=== PATIENT | female | born 1965 | race African-American/Black ===

== ENCOUNTER 2016-07-20 02:40 | Inpatient (IN) ==
[2016-07-20] MEDS ORDERED: DUONEB (A & A) INH ONE (03:10)
[2016-07-20] MEDS ORDERED: SOLU-MEDROL IV ONE (03:15)
[2016-07-20 03:42] LABS: MANUAL DIFF NEEDED? NO
[2016-07-20 03:45] LABS: BASO% 0.2 % (0.0-0.8); EOS# 1.52 X1000 (0.0-0.7); HEMATOCRIT 40.7 % (37.0-47.0); HEMOGLOBIN 13.7 g/dL (12.0-16.0); IMM GRAN# 0.03 X1000 (0.0-0.04); IMM GRAN% 0.3 % (0.0-0.5); LYMPH# 3.83 X1000 (1.2-3.4); LYMPH% 40.2 % (20.5-51.1); MCH 29.3 PG (27-31); MCHC 33.7 g/dL (33-37); MCV 87.2 FL (81-99); MONO% 7.4 % (1.7-9.3); MPV 12.5 FL (7.4-10.4); NEUT% 35.9 % (42.2-75.2); PLT 280 X1000 (130-400); RBC 4.67 XMIL (4.2-5.4)
[2016-07-20 04:35] LABS: AGAP 16; ALBUMIN 4.3 g/dL (3.5-5.0); ALKALINE PHOSPHATASE 88 U/L (32-104); BUN 10 mg/dL (8-22); CALCIUM 9.6 mg/dL (8.8-10.2); CHLORIDE 87 mmol/L (98-107); CK PROFILE 254 U/L (24-173); COSMO 286; GOT 24 U/L (10-30); GPT 38 U/L (10-36); MAGNESIUM 1.6 mg/dL (1.5-2.7); POTASSIUM 3.8 mmol/L (3.5-5.1); SODIUM 134 mmol/L (136-145); TCO2 31 mmol/L (25-35); TOTAL BILIRUBIN 0.26 mg/dL (0.20-1.00); TOTAL PROTEIN 8.2 g/dL (6.3-8.3)
[2016-07-20] MEDS ORDERED: HUMULIN R IV ONE (04:38)
[2016-07-20] MEDS ORDERED: ROBITUSSIN PO ONE (04:39)
[2016-07-20] MEDS ORDERED: NS 1,000 ML IV ONE (04:40)
[2016-07-20 04:56] LABS: CK INDEX 2.5 (0.0-2.5); CK-MB 6.23 ng/mL (0.0-5.0)
--- NOTE | 2016-07-20 05:25 | PROVIDER DOCUMENTATION ---
HPI-Respiratory General - General Chief Complaint: Shortness of Breath Stated Complaint: sob Time Seen by Provider: 07/20/16 03:14 Source: patient (Patient is a 50 year old morbidly obese black female with history of COPD requiring home oxygen and updrafts,ulcers, and diabetes who presents by EMS with worsening shortness of breath and glucose over 400 for past week. Followed by Dr. Jimenez. patient also complains of vomiting blood and nausea.) Allergies/Adverse Reactions: Patient Allergies Allergy/AdvReac Type Severity Reaction Status Date / Time lisinopril Allergy Severe SWELLING Verified 06/15/16 18:11 procaine HCl * Allergy Severe ANAPHYLAXIS Verified 06/15/16 18:11 [From Novocain] Penicillins Allergy Intermediate HIVES Verified 06/15/16 18:11 bupivacaine HCl * Allergy SWELLING Verified 06/15/16 18:11 [From Sensorcaine] latex AdvReac RASH Verified 06/15/16 18:11 Home Medications: Home Medication List Medication Instructions Recorded Confirmed Last Taken Type Potassium Chloride [Klor-Con M20] 20 meq PO DAILY #30 tab.er.prt 11/24/1406/15/16 11:00 Rx Amlodipine [Norvasc] 10 mg PO DAILY #30 tablet 05/23/15 07/20/16 06/15/16 11:00 Rx Albuterol 2.5MG/Ipratrop 0.5MG 3 ml INH [id number] #30 neb 06/17/15 07/20/16 11:00 Rx [Duoneb (A & A)] Furosemide [Lasix] 40 mg PO DAILY #30 tablet 06/17/15 07/20/16 06/15/16 11:00 Rx Metformin [Glucophage] 500 mg PO BID #60 09/01/15 07/20/16 06/15/16 11:00 Rx Albuterol Sulfate Inhaler 2 puff IH Q4H PRN #1 inhaler 06/22/16 07/20/16 Unknown Rx [Ventolin Hfa] Alprazolam [Alprazolam] 1 tab PO PRN PRN 07/20/16 07/20/16 Unknown History Hydrocodone/Acetaminophen 1 tab PO Q6HR PRN 07/20/16 07/20/16 Unknown History [Hydrocodon-Acetaminophn 10-325] Review of Systems - Adult - REVIEW OF SYSTEMS - ADULT Constitutional: denies: chills, fever Eyes: reports: no symptoms reported Ears, Nose, Mouth & Throat: reports: no symptoms reported Cardiovascular: reports: see HPI, edema. denies: chest pain Respiratory: reports: cough (dry), shortness of breath, wheezing Gastrointestinal: reports: nausea. denies: abdominal pain, diarrhea, vomiting Genitourinary: reports: no symptoms reported Musculoskeletal: reports: no symptoms reported Integumentary: denies: rash Neurological: reports: no symptoms reported Psychiatric: reports: anxiety Endocrine: reports: polyuria Hematologic/Lymphatic: reports: no symptoms reported Allergic/Immunologic: reports: no symptoms reported All Other Systems: Reviewed and Negative Past History - Adult - PAST MEDICAL HISTORY-ADULT Review of Records: reports: Old Records Reviewed, Nursing Assessment Review, Medications Reviewed, Social history reviewed & non-contributory. Major Childhood Illnesses: reports: denies history Cardiovascular: reports: cardiac disease (CMG), CHF, HTN, hyperlipidemia Respiratory: reports: asthma, COPD (home o2) Gastrointestinal: reports: GERD Obstetrical/Gynecological: reports: denies history Genitourinary: reports: denies history Musculoskeletal: reports: chronic pain (hip, foot pain), other (peripheral edema ) Neurological: reports: CVA, TIA Endocrine/Immune: reports: anemia, Diabetes Other Conditions: reports: denies history Additional History: Freq ER visits - PRIOR SURGERIES/PROCEDURES Surgical/Procedure History: reports: cholecystectomy, BTL, , breast - PRIOR HOSPITALIZATIONS Prior Hospitalizations: - IMMUNIZATION STATUS Childhood Immunizations: See Nurse Assessment Flu Vaccine: See Nurse Assessment - FAMILY HISTORY Family History: reviewed, not pertinent Physical Exam-General - CONSTITUTIONAL General Appearance: alert, obese - EYES Eyes: other (clear) - HEAD, EARS, NOSE, MOUTH & THROAT HENMT: moist mucous membranes - NECK Neck: supple - RESPIRATORY Respiratory: no respiratory distress, no accessory muscle use, decreased breath sounds, wheezing - CARDIOVASCULAR Cardiovascular: tachycardia - GASTROINTESTINAL (ABDOMEN) Abdominal Exam: non tender, soft, no organomegaly - MUSCULOSKELETAL Back Exam: normal inspection, no CVA tenderness Extremity: non-tender, other (no homans or cords) Peripheral Pulses: radial (R): 2+, radial (L): 2+, dorsalis-pedis (R): 2+, dorsalis-pedis (L): 2+ - SKIN Integumentary: normal color, normal turgor - NEUROLOGIC Neurologic: grossly normal - PSYCHIATRIC Psych/Mental Status: anxious Progress - PLAN OF CARE/RESULTS Progress/Plan/Lab Results: Vital Signs - 8 hr 07/20/16 02:59 07/20/16 03:46 Temperature 98.6 F Pulse Rate 103 H 88 Respiratory Rate 26 H 16 Blood Pressure 138/88 O2 Sat by Pulse Oximetry 95 Laboratory Results - last 24 hr 07/20/16 07/20/16 07/20/16 02:30 02:30 02:30 WBC 9.52 RBC 4.67 Hgb 13.7 Hct 40.7 MCV 87.2 MCH 29.3 MCHC 33.7 RDW Std Deviation 12.2 Plt Count 280 MPV 12.5 H Immature Gran % (Auto) 0.3 Neut % (Auto) 35.9 L Lymph % (Auto) 40.2 Sanders % (Auto) 7.4 Eos % (Auto) 16.0 H Baso % (Auto) 0.2 Immature Gran # (Auto) 0.03 Neut # (Auto) 3.42 Lymph # (Auto) 3.83 H Sanders # (Auto) 0.70 H Eos # (Auto) 1.52 H Baso # (Auto) 0.02 D-Dimer 0.43 Sodium 134 L Potassium 3.8 Chloride 87 L Carbon Dioxide 31 Anion Gap 16 BUN 10 Creatinine 0.7 Estimated GFR/1.73 m2 > 60 BUN/Creatinine Ratio 14 Glucose 427 H* POC Glucose Calculated Osmolality 286 Calcium 9.6 Magnesium 1.6 Total Bilirubin 0.26 AST 24 ALT 38 H Alkaline Phosphatase 88 Creatine Kinase 254 H Creatine Kinase Index 2.5 CK-MB (CK-2) 6.23 H Troponin T Wrn-T-Uzlszublxps Pept Total Protein 8.2 Albumin 4.3 Globulin 3.9 Albumin/Globulin Ratio 1.1 07/20/16 07/20/16 07/20/16 02:30 02:30 03:33 WBC RBC Hgb Hct MCV MCH MCHC RDW Std Deviation Plt Count MPV Immature Gran % (Auto) Neut % (Auto) Lymph % (Auto) Sanders % (Auto) Eos % (Auto) Baso % (Auto) Immature Gran # (Auto) Neut # (Auto) Lymph # (Auto) Sanders # (Auto) Eos # (Auto) Baso # (Auto) D-Dimer Sodium Potassium Chloride Carbon Dioxide Anion Gap BUN Creatinine Estimated GFR/1.73 m2 BUN/Creatinine Ratio Glucose POC Glucose 363 H Calculated Osmolality Calcium Magnesium Total Bilirubin AST ALT Alkaline Phosphatase Creatine Kinase Creatine Kinase Index CK-MB (CK-2) Troponin T < 0.010 Nxs-[id number]-[id number] Pept 32 Total Protein Albumin Globulin Albumin/Globulin Ratio Orders Category Date Time Status Cardiac Monitoring DIRECTED Care 07/20/16 03:16 Active FSBS/Accucheck Result RTQ1H Care 07/20/16 04:40 Active Oxygen Therapy- ED Nursing DIRECTED Care 07/20/16 03:10 Active Saline Loc DIRECTED Care 07/20/16 03:10 Active CHEST-1 VIEW [RAD] Stat Exams 07/20/16 03:15 Taken CBC WITH ELECTRONIC DIFF [HEME] Stat Lab 07/20/16 02:30 Completed CK PROFILE [SP CHEM] Stat Lab 07/20/16 02:30 Completed COMPREHENSIVE METABOLIC PANEL [CHEM] Stat Lab 07/20/16 02:30 Completed D-DIMER [CHEM] Stat Lab 07/20/16 02:30 Completed MAGNESIUM [CHEM] Stat Lab 07/20/16 02:30 Completed PRO B-NATRIURETIC PEPTIDE Stat Lab 07/20/16 02:30 Completed TROPONIN T Stat Lab 07/20/16 02:30 Completed 0.9% Sodium Chloride Inj [Ns] 1,000 ml Med 07/20/16 04:40 Active IV 999 mls/hr Albuterol 2.5MG/Ipratrop 0.5MG [Duoneb (A & A)] Med 07/20/16 03:10 Discontinued 3 ml INH NOW ONE Guaifenesin [Robitussin] Med 07/20/16 04:39 Discontinued 10 ml PO NOW ONE Insulin Human Regular [Humulin R] Med 07/20/16 04:38 Discontinued 8 unit IV NOW ONE Methylprednisolone Sod Succ [Solu-Medrol] Med 07/20/16 03:15 Discontinued 125 mg IV NOW ONE Aerosol Treatments Routine Oth 07/20/16 03:11 Completed Aerosol Treatments Stat Oth 07/20/16 03:10 Completed Aerosol Treatments Stat Oth 07/20/16 03:11 Completed Pulse Oximetry Stat Oth 07/20/16 03:10 Completed EKG [EKG] Stat Ther 07/20/16 03:16 Ordered Result Diagrams: 07/20/16 02:30 07/20/16 02:30 - REASSESSMENT Reassessment #1 Time Reassessed: 04:20 Status: unchanged Reassessment Comment: continues to wheeze with decreased excursion - XRAY 1 XRAY Study: Chest (nad) - CONSULTS/PCP/HOSPITALIST Notification #1 *Consult/PCP/Hospitalist*: Dr. Gregory, hospitalist Time Discussed: 05:25 Consult Disposition: Will see in ED, Admit Departure - Departure Time of Disposition Decision: 05:30 DIAGNOSIS: COPD exacerbation Uncontrolled diabetes mellitus Qualifiers: Diabetes mellitus type: type 2 Diabetes mellitus complication status: with unspecified complications Diabetes mellitus joint terminal attack controller insulin use: unspecified fdc insulin use status Qualified Code(s): E11.8 - Type 2 diabetes mellitus with unspecified complications Disposition: ADMITTED INPATIENT 09 Certified Medical Emergency: Emergent Condition: Stable Referrals and Follow-Ups: None,PCP [Primary Care Provider] - - Critical Care Note This patient required my direct & personal management of CC.: No
[2016-07-20] MEDS ORDERED: PEPCID IV ONE (05:37)
[2016-07-20] MEDS ORDERED: SODIUM CHLORIDE 0.9% INJ ONE (05:37)
[2016-07-20 06:19] LABS: HEMOGLOBIN A1C 12.2 % (4.8-6.0)
[2016-07-20] MEDS ORDERED: DUONEB (A & A) INH PRN (06:50)
[2016-07-20] MEDS ORDERED: ZOFRAN IV PRN (06:50)
[2016-07-20] MEDS ORDERED: XANAX PO PRN (06:50)
--- NOTE | 2016-07-20 07:46 | HISTORY AND PHYSICAL ---
PRIMARY CARE PROVIDER: Dwight Escoto MD. CHIEF COMPLAINT: Shortness of breath. HISTORY OF PRESENT ILLNESS: Ms. Nelson is a 50-year-old, female, who is well known to our service. She has frequent admissions and ER visits for COPD. She has comorbidities such as asthma, diabetes mellitus type 2 which is poorly controlled, hypertension and congestive heart failure. [facility] complaining of shortness of breath that has been ongoing for the past month. I believe she has been to [facility]'s Emergency room 2 times during that time frame. She states that she has taken cough medication and antibiotics, which has not helped. She states that she is having coughing spells, mostly at night. She states that she has not been bringing up sputum. She had no complaint of sinus congestion, fever or chills. She states that she has been taking all of her medications appropriately. In the emergency room, a chest x-ray was obtained and interpreted as no acute disease by the ER provider. Laboratory data was around patient's baseline. She did have an elevated blood glucose of 427, but the patient is poorly controlled with her diabetes. She will be admitted to the medical floor for further evaluation and treatment. REVIEW OF SYSTEMS: Fourteen-point review of systems conducted with patient. She was positive for shortness of breath, mostly with exertion. She is apparently on home O2. She has complained of chest tightness, but not overt chest pain. Denied dizziness or syncopal episodes. She has had nausea with spells of vomiting related to her cough. She has had dry cough with scant amounts of sputum. She also had a complaint of dysuria, which started yesterday. All other systems were reviewed and found to be negative. PAST MEDICAL HISTORY: 1. COPD with frequent exacerbation. 2. Asthma. 3. Diabetes mellitus type 2, poorly controlled. 4. Hypertension. 5. Cor pulmonale. 6. Congestive heart failure. PREVIOUS SURGICAL HISTORY: 1. Cholecystectomy. 2. Tubal ligation. 3. Breast reduction. SOCIAL HISTORY: Lives with her . Is disabled. She smoked for roughly 25 years. Quit around a year and a half ago. Denies alcohol or illicit drug use or abuse. FAMILY HISTORY: Father had COPD and asthma. Mother had congestive heart failure and diabetes mellitus. Both sisters have diabetes mellitus. ALLERGIES: Lisinopril, Sensorcaine, Novocaine, penicillin and Lipitor, as well as latex. HOME MEDICATIONS: 1. Klor-Con 20 mEq p.o. daily. 2. Norvasc 10 mg p.o. daily. 3. DuoNeb inhalation 4 times daily. 4. Lasix 40 mg p.o. daily. 5. Metformin 500 mg p.o. b.i.d. 6. Ventolin HFA 2 puffs inhalation 4 times daily as needed for wheezing. 7. Mitchell 1 tablet p.o. q.6 p.r.n. pain. 8. Alprazolam 1 tablet p.o. p.r.n. PHYSICAL EXAMINATION: VITAL SIGNS: Temperature 98.6, pulse 88, respirations 16, blood pressure 138/88, oxygen saturation 95% on 4 L nasal cannula. GENERAL: Morbidly obese, 50-year-old female, lying in the ER stretcher. Very pleasant. Answers all questions appropriately. Alert and oriented x3. In no acute distress. HEENT: Head is atraumatic, normocephalic. Pupils equal, round, react to light. Extraocular eye movement is intact. Sclerae is anicteric. Conjunctivae is pink. Oral mucosa is moist. Oropharynx is clear. NECK: Supple. No JVD. Trachea is midline. No carotid bruit on auscultation. CARDIOVASCULAR: S1-S2 appreciated. Regular rhythm. No murmurs, gallops, rubs. LUNGS: Inspiratory and expiratory wheezing throughout lung saez, bilaterally diminished with a prolonged expiratory phase. No rhonchi, no rales. ABDOMEN: Protuberant, soft, nondistended, nontender. Bowel sounds present in all 4 quadrants. Normoactive. No pulsatile mass. No organomegaly. EXTREMITIES: Trace bilateral lower extremity nonpitting edema. 2+ pedal pulses bilaterally. No clubbing or cyanosis. SKIN: Warm dry and intact. No acute lesions or rash. NEUROLOGICAL: Alert and oriented x3. Cranial nerves 2-12 grossly intact. GENITOURINARY: Patient voids. No bladder distention. Otherwise deferred. DIAGNOSTIC DATA: Chest x-ray, interpreted by ER provider is NAD. LABORATORY DATA: CBC within normal limits. D-dimer 0.43, sodium 143, potassium 3.8, chloride 87, carbon dioxide 31, BUN 10, creatinine 0.7, glucose 427. UA is pending. ASSESSMENT AND PLAN: 1. Chronic obstructive pulmonary disease exacerbation. We will give Solu-Medrol 60 mg IV q.12 hours. DuoNeb q.6 hours and q.2 hours p.r.n. wheezing. 2. Hypertension. Continue Norvasc. 3. Diabetes mellitus type 2. Patient appears to be poorly controlled. Check hemoglobin A1c. Increase her metformin to 1000 mg b.i.d. Start on insulin sliding scale q.4 hours moderate dosing. 4. Congestive heart failure. The patient does not appear to be fluid volume overloaded at this time. We will continue her oral Lasix. We will monitor her fluid regimen closely and monitor for increased edema related to her steroid regimen. Strict I's and O's. 5. Asthma, aware. Breathing treatments have been ordered. 6. Further recommendations per patient clinical course. Dictated by TIMOTHY Beltran for Wilian Gregory MD cc: TIMOTHY Beltran MD Moses Awoniyi, MD
[2016-07-20] MEDS: HUMULIN R SUBQ SCH ×4 (07:57→20:27)
[2016-07-20] MEDS: LOVENOX SUBQ SCH (07:57)
[2016-07-20] MEDS: PROTONIX PO SCH (07:58)
[2016-07-20] MEDS: GLUCOPHAGE PO SCH ×2 (07:59→16:49)
[2016-07-20] MEDS: KLOR-CON PO SCH (07:59)
[2016-07-20] MEDS: LASIX PO SCH (07:59)
[2016-07-20] MEDS: NORVASC PO SCH (07:59)
--- NOTE | 2016-07-20 08:24 | Diag Imaging Result Doc PS360 ---
CHEST-1 VIEW - 07/20/2016 INDICATION: sob TECHNIQUE: COMPARISON: 06/22/2016 FINDINGS: The lungs are normally expanded and clear. Heart size and mediastinal contours are normal. No pneumothorax or pleural effusion. IMPRESSION: Negative exam. Electronically signed by Rao Olson 07/20/2016 8:22 AM
[2016-07-20] MEDS: DUONEB (A & A) INH SCH ×3 (09:17→20:58)
[2016-07-20] MEDS: ROBITUSSIN PO PRN ×2 (12:27→22:35)
[2016-07-20 12:58] LABS: URINE MICRO REVIEW NEEDED? NO; URINE SOURCE CATH
[2016-07-20 13:03] LABS: BILIRUBIN URINE NEGATIVE (NEGATIVE); BLOOD URINE NEGATIVE (NEGATIVE); COLOR STRAW; GLUCOSE URINE >1000 mg/dL (NEGATIVE); LEUKOCYTES URINE NEGATIVE (NEGATIVE); NITRITE URINE NEGATIVE (NEGATIVE); PROTEIN URINE NEGATIVE (NEGATIVE); SP GRAVITY URINE 1.019; TURBIDITY URINE CLEAR (CLEAR); UR EPITHELIAL CELLS <10 /HPF (<10); URINE BACTERIA NEGATIVE /HPF; URINE CULTURE NEEDED? YES; URINE RBC <10 /HPF (<10); URINE WBC TNTC /HPF (<10); UROBILINOGEN URINE NORMAL (NORMAL)
[2016-07-20] MEDS ORDERED: SOLU-MEDROL IV SCH (15:00)
[2016-07-20] MEDS: SOLU-MEDROL IV SCH (15:38)
--- NOTE | 2016-07-20 17:20 | PROGRESS NOTE ---
DATE: 07/20/2016 SUBJECTIVE: Ms. Nelson was admitted early this morning, 50-year-old, well known to the service for recurrent admissions and ER visits for COPD. She has comorbidities asthma, diabetes mellitus type poorly controlled, hypertension and congestive heart failure. Came to the emergency room complaining of shortness of breath that has been going on for the past month, believe she has been at [facility] emergency room 2 times this time frame. States that she has taken cough medication, antibiotics, did not help. States she is having coughing spells mostly at night. States that she has been bringing of thick sputum and no complaints sign of congestion, fever, chills. States she has been taking all of her other medications appropriately. Emergency room chest x-ray obtained interpreted as no acute disease. Laboratory data baseline she did have an elevated blood glucose of 427. Patient poorly controlled diabetes. PAST MEDICAL HISTORY: 1. COPD with frequent exacerbations. 2. Asthma. 3. Diabetes mellitus type 2. 4. Hypertension. 5. Cor pulmonale. 6. Congestive heart failure. PREVIOUS SURGERY: Cholecystectomy, tubal ligation, breast reduction. Her last echocardiogram was on 12/08/2014. Left ventricle difficult to fully visualize, estimated ejection fraction 70- 75% with hyperdynamic systolic function, right ventricular size and function preserved. Her pulmonary pressures were only 30-35 mmHg. PHYSICAL EXAM: General: She is breathing fairly comfortably. She does have wheezing end expiratory scattered through lungs. Vital signs: Afebrile, temperature 98.6 degrees, pulse 110, respirations 18, blood pressure 130/88. HEENT: Pupils were equal, round, CVP less than 6 cm. Lungs: Clear in all lung saez. Cardiovascular: Regular rhythm, rate without murmur, S3. LAB: Blood sugars 320, 448. ASSESSMENT AND PLAN: 1. Chronic obstructive pulmonary disease with exacerbation. Also history of asthma. Will decrease the Solu-Medrol because her sugars are running so high to I think 40 mg IV q.12. Continue DuoNeb. 2. Hypertension. Continue Norvasc. 3. Diabetes mellitus type 2. Sugars running high. She is on metformin 1000 mg twice a day. I think she needs to probably incorporate some insulin. 4. Congestive heart failure. It looks like it is diastolic based on her previous echocardiograms. 5. Asthma. Note current medications. She is on Xanax p.r.n. and put her on a split dose of insulin 70/30 to help bring sugars down. Breathing seems to be doing better. Her blood pressure looks pretty well controlled at this time. cc: Justino Butcher MD
[2016-07-20] MEDS ORDERED: INSULIN PEN NEEDLES ONE (17:33)
[2016-07-20] MEDS: NOVOLOG MIX 70/30 SUBQ SCH (17:37)
[2016-07-20] MEDS: NORCO-10 PO PRN ×2 (17:47→22:36)
[2016-07-21] MEDS: SOLU-MEDROL IV SCH (02:28)
[2016-07-21] MEDS: DUONEB (A & A) INH SCH ×2 (03:52→11:31)
[2016-07-21] MEDS: HUMULIN R SUBQ SCH ×2 (06:16→10:18)
[2016-07-21] MEDS: LOVENOX SUBQ SCH (06:16)
[2016-07-21] MEDS: PROTONIX PO SCH (06:16)
[2016-07-21 06:23] LABS: MANUAL DIFF NEEDED? NO
[2016-07-21 06:29] LABS: HEMATOCRIT 39.9 % (37.0-47.0); HEMOGLOBIN 13.3 g/dL (12.0-16.0); IMM GRAN# 0.03 X1000 (0.0-0.04); IMM GRAN% 0.3 % (0.0-0.5); LYMPH# 1.36 X1000 (1.2-3.4); LYMPH% 12.7 % (20.5-51.1); MCH 29.2 PG (27-31); MCHC 33.3 g/dL (33-37); MCV 87.7 FL (81-99); MONO# 0.53 X1000 (0.11-0.59); MONO% 4.9 % (1.7-9.3); NEUT% 82.1 % (42.2-75.2); PLT 259 X1000 (130-400); RBC 4.55 XMIL (4.2-5.4)
[2016-07-21 06:41] LABS: AGAP 15; BUN 13 mg/dL (8-22); CALCIUM 10.5 mg/dL (8.8-10.2); CHLORIDE 94 mmol/L (98-107); COSMO 283; POTASSIUM 4.3 mmol/L (3.5-5.1); SODIUM 137 mmol/L (136-145); TCO2 28 mmol/L (25-35)
[2016-07-21] MEDS: KLOR-CON PO SCH (09:45)
[2016-07-21] MEDS: NOVOLOG MIX 70/30 SUBQ SCH (09:45)
[2016-07-21] MEDS: GLUCOPHAGE PO SCH (09:45)
[2016-07-21] MEDS: LASIX PO SCH (09:45)
[2016-07-21] MEDS: NORVASC PO SCH (09:45)
[2016-07-21 11:20] VITALS: BP 162/74
--- NOTE | 2016-07-21 11:36 | DISCHARGE SUMMARY ---
ADMISSION DATE: 07/20/2016 DISCHARGE DATE: 07/21/2016 HISTORY OF PRESENT ILLNESS: Her doctor is Dr. Dwight Escoto. Ms. Nelson is a 50-year-old who is well known to our service. Frequent admissions and ER visits for COPD. Has comorbidities such as asthma, diabetes mellitus type 2, poorly controlled hypertension, congestive heart failure. Presented to the emergency room complaining of shortness of breath. It has been going on for the past month. She went to [facility] a couple times. States that she had taken cough medication and antibiotics but it is not helping. States that she is having coughing spells. HOSPITAL COURSE: She showed improvement, decreased wheezing. She still has a cough. I explained she will have the cough for a while. She has postnasal drip syndrome as well. No sign of fever. No sign of infection. PAST MEDICAL HISTORY: 1. COPD with frequent exacerbation. 2. Asthma. 3. Diabetes mellitus type 2. 4. Hypertension. 5. Cor pulmonale. 6. Congestive heart failure. PAST SURGICAL HISTORY: 1. Cholecystectomy. 2. Tubal ligation. 3. Breast reduction. DISPOSITION: [facility] she could go home and requesting to go home on 07/21/2016. DISCHARGE MEDICATIONS: She takes her albuterol chest treatments and Ventolin inhaler as needed. She is on alprazolam 1 tablet p.o. p.r.n., Norvasc 10 mg a day, Lasix 40 mg a day. She takes hydrocodone 10/325 q.6 hours p.r.n., Glucophage 500 mg b.i.d., Klor-Con 20 mEq daily. I gave her Robitussin cough medicine which she can continue. Blood sugars did run high. I put her on some insulin sliding scale while she was here. I put her on a split dose of insulin and we will give her prescription for such. She needs to follow up with her blood sugars with Dr. Escoto. cc: Justino Butcher MD
== END 2016-07-21 13:49 | disposition home or self-care (01) ==
LOC: ED 02:40 → 3N 06:20 → SUATTDRO 06:20 → 3N 06:32
PROVIDERS: ATTEND Emergency Medicine

== ENCOUNTER 2018-11-17 22:36 | Inpatient (IN) ==
[2018-11-17] MEDS ORDERED: SOLU-MEDROL IV ONE (23:17)
[2018-11-17] MEDS ORDERED: DUONEB (A & A) INH ONE (23:17)
[2018-11-17] MEDS ORDERED: DUONEB (A & A) ONE (23:28)
[2018-11-17 23:38] LABS: BASO# 0.02 X1000 (0.0-0.2); BASO% 0.2 % (0.0-0.8); EOS# 0.92 X1000 (0.0-0.7); EOS% 9.8 % (0.0-10.0); HEMATOCRIT 40.3 % (37.0-47.0); HEMOGLOBIN 13.6 g/dL (12.0-16.0); IMM GRAN# 0.01 X1000 (0.0-0.04); IMM GRAN% 0.1 % (0.0-0.5); LYMPH# 3.34 X1000 (1.2-3.4); LYMPH% 35.6 % (20.5-51.1); MCH 28.8 PG (27-31); MCHC 33.7 g/dL (33-37); MCV 85.2 FL (81-99); MONO# 0.59 X1000 (0.11-0.59); MONO% 6.3 % (1.7-9.3); MPV 11.9 FL (7.4-10.4); NEUT# 4.49 X1000 (1.4-6.5); PLT 252 X1000 (130-400); RBC 4.73 XMIL (4.2-5.4); RDW 12.6 % (11.5-14.5); WBC 9.37 X1000 (4.8-10.8)
[2018-11-17 23:43] LABS: BE 6.5 mmoll (-3.0-3.0); BLOOD TYPE ARTERIAL; HCO3-(ACT) 29.9 mmoll (20.0-26.0); METHB 1.4 % (0.0-1.5); O2(CT) 19.2 mL/dL (15.0-23.0); O2HB 94.9 % (95.0-99.0); PCO2(98.6) 44 mmHg (35-45); PO2(98.6) 101 mmHg (60-100); SAMPLE BLOOD; SAO2 98.8 % (95.0-100.0); THB 14.3 g/dL (11.5-17.4); pH(98.6) 7.46 (7.35-7.45)
[2018-11-17 23:44] LABS: MODALITY CANNULA
[2018-11-17 23:45] LABS: ALLEN TEST NO
[2018-11-18 00:06] LABS: AGAP 14; ALBUMIN 4.4 g/dL (3.5-5.0); ALKALINE PHOSPHATASE 78 U/L (32-104); BUN 9 mg/dL (8-22); CALCIUM 9.7 mg/dL (8.8-10.2); CHLORIDE 92 mmol/L (98-107); COSMO 283; CREATININE 0.8 mg/dL (0.5-0.9); ESTIMATED GFR > 60; GLUCOSE 380 mg/dL (70-104); GOT 20 U/L (10-30); GPT 30 U/L (10-36); POTASSIUM 3.4 mmol/L (3.5-5.1); SODIUM 134 mmol/L (136-145); TCO2 28 mmol/L (25-35); TOTAL PROTEIN 7.2 g/dL (6.3-8.3)
[2018-11-18 00:28] LABS: CK INDEX 0.7 (0.0-2.5); CK-MB 2.43 ng/mL (0.0-5.0)
--- NOTE | 2018-11-18 00:35 | EKG Report ---
Test Performed on : 11/17/2018 10:45:35 PM Test Reason : shortness of breath Blood Pressure : / mmHG Vent. Rate : 099 BPM Atrial Rate : 099 BPM P-R Int : 186 ms QRS Dur : 064 ms QT Int : 328 ms P-R-T Axes : 044 013 052 degrees QTc Int : 420 ms Normal sinus rhythm. Septal infarct (cited on or before 27-JAN-2018) Abnormal ECG When compared with ECG of 27-JAN-2018 13:58, premature atrial complexes. are no longer present AL interval has decreased Unconfirmed Result
[2018-11-18] MEDS ORDERED: ZITHROMAX 500 MG/NS 500 MG/250 ML IVPB IV ONE (00:36)
[2018-11-18] MEDS ORDERED: HUMULIN R (PARKWAY) SUBQ ONE (00:39)
[2018-11-18] MEDS ORDERED: LEVAQUIN 750 MG in NS 150 ML IV ONE (00:42)
[2018-11-18] MEDS ORDERED: LEVAQUIN 750 MG/D5W 750 MG/150 ML IVPB ONE (01:12)
[2018-11-18] MEDS: SOLU-MEDROL IV SCH ×3 (03:21→21:28)
[2018-11-18 05:26] LABS: BILIRUBIN URINE NEGATIVE (NEGATIVE); BLOOD URINE NEGATIVE (NEGATIVE); CLARITY CLEAR (CLEAR); COLOR YELLOW; KETONE URINE TRACE mg/dL (NEGATIVE); LEUKOCYTES URINE NEGATIVE (NEGATIVE); NITRITE URINE POSITIVE (NEGATIVE); PH URINE 6.5; PROTEIN URINE NEGATIVE (NEGATIVE); UROBILINOGEN URINE NORMAL
[2018-11-18 05:31] LABS: URINE EPITHELIAL CELLS <10 /HPF (<10)
[2018-11-18 05:32] LABS: URINE BACTERIA 3+ /HFP
[2018-11-18 05:33] LABS: URINE CAST NONE SEEN /LPF; URINE CRYSTAL NONE SEEN /HPF; URINE SOURCE CLEAN CATCH; URINE WBC <10 /HPF (<10); URINE YEAST NONE SEEN /HPF
[2018-11-18 05:34] LABS: URINE RBC <10 /HPF (<10)
[2018-11-18] MEDS ORDERED: HUMALOG (PARKWAY) SUBQ SCH ×2 (07:00→08:10)
[2018-11-18] MEDS: DUONEB (A & A) INH SCH ×5 (07:52→23:33)
[2018-11-18] MEDS ORDERED: ZOFRAN IV PRN (08:12)
[2018-11-18] MEDS ORDERED: NS 1,000 ML IV ONE ×2 (08:12→10:07)
[2018-11-18] MEDS ORDERED: SALINE LOCK IV FLUID XX ONE (08:12)
--- NOTE | 2018-11-18 08:36 | Diag Imaging Result Doc PS360 ---
EXAM: CHEST-2 VIEWS HISTORY: SOB TECHNIQUE: PA and Lateral chest x-ray COMPARISON: 01/27/2018 FINDINGS: The cardiomediastinal silhouette is within normal limits. There are stable mildly prominent interstitial markings. Pulmonary vasculature is not congested. No infiltrate, effusion, or pneumothorax is appreciated. IMPRESSION: No acute cardiopulmonary abnormality is identified. Electronically signed by Malou Kline 11/18/2018 8:33 AM
[2018-11-18] MEDS: LASIX PO SCH (08:55)
[2018-11-18] MEDS: KLOR-CON PO SCH (08:55)
[2018-11-18] MEDS: LANTUS INSULIN SUBQ SCH (08:56)
[2018-11-18] MEDS: LOVENOX SUBQ SCH (08:56)
[2018-11-18] MEDS: HUMALOG (PARKWAY) SUBQ SCH ×4 (08:57→21:29)
[2018-11-18 09:49] LABS: HEMOGLOBIN A1C 10.9 % (4.8-6.0)
--- NOTE | 2018-11-18 11:42 | HISTORY AND PHYSICAL ---
PRIMARY CARE PROVIDERS: Dr. Escoto and Dr. Ortiz. Apparently, Dr. Ortiz is the family physician. CHIEF COMPLAINT: Shortness of breath. HISTORY OF PRESENT ILLNESS: Ms. Kaylah Nelson is a 53-year-old female with a medical history of reported congestive heart failure, COPD on home oxygen 2 L, hypertension, high cholesterol, uncontrolled diabetes, and a stroke in 2015 that left her with some visual deficits in her left eye and some memory deficits, who is now here with complaints of 3 weeks worth of shortness of breath, coughing up green phlegm, and chest pains related to coughing and taking in deep breaths, which worsened last night. It was 8/10. It felt real tight. Improved after respiratory treatments once she arrived here. She has had subjective fever and chills as well. States she has not gone to any of her primary care providers with these complaints. She came here 3 weeks later. Imaging just reveals that there are no acute findings, although on auscultating, there are definitely some expiratory wheezes noted throughout. Apparently, she has been needing more oxygen at home than usual. She has got maybe some mild hypoxemic respiratory failure. Her CO2 is actually stable. She is requiring some oxygen to help her maintain her oxygen levels, although she has taken it off while she is in the room. She also has an elevated lactate. White count is normal, and the lactate increased from yesterday to today, so she will get some fluids for that. Will try to get a sample of the green phlegm she is talking about. She does have some edema in the lower extremities. I do not feel like she has fluid in the lungs. It sounds like it is more inflammatory, and hopefully steroids will help. PAST MEDICAL HISTORY: 1. Reported congestive heart failure, but she has an ejection fraction of 70% to 75% on an echo from 2015. She does have some mild pulmonary hypertension of 30 to 35 mmHg. Does not report any diastolic dysfunction, but it could be that she has some diastolic dysfunction. 2. COPD, on 2 L of home oxygen. 3. Hypertension. 4. Hyperlipidemia. 5. GERD. 6. CVA in 2015 with left eye visual deficits and memory deficits. 7. Uncontrolled diabetes mellitus type 2 with a hemoglobin A1c of 10.9. 8. Asthma. PAST SURGICAL HISTORY: 1. Cholecystectomy. 2. Bilateral tubal ligation. 3. Breast reduction. SOCIAL HISTORY: She has started smoking again. She was a 1 pack per day smoker for 30 years, and then she quit in 2015, but resumed back in 2018, and she stopped again this past September, last month. Denies alcohol. Denies drugs. She lives with her son. Uses a walker to get around. FAMILY HISTORY: Mother and father both with diabetes. Mother and father both with hypertension. Father had cardiomegaly. Mother and father both with COPD. ALLERGIES: Lisinopril causes angioedema and tongue swelling. Procaine (anaphylaxis). Penicillin (hives). Bupivacaine (swelling). Latex causes rash. HOME MEDICATIONS: 1. [place] 1 tablet p.o. every 6 hours p.r.n. 2. Albuterol and Atrovent 4 times a day as needed. 3. Metformin 500 mg p.o. twice a day. 4. Potassium chloride 20 mEq p.o. daily. 5. Lasix 40 mg p.o. daily. Other medications that have not been put on the home medication list: 1. She is on omeprazole 40 mg. 2. It looks like she is also on losartan 100 mg. 3. Her metformin is actually 850 mg. 4. She is also on Ozempic. 5. She is on simvastatin 20 mg. REVIEW OF SYSTEMS: A 14-point review of systems was complete, and all were negative, except for those mentioned in above HPI. PHYSICAL EXAMINATION: VITAL SIGNS: Temperature 97.7 degrees, heart rate 101, respiratory rate 16, blood pressure 158/92, O2 saturation 96% on room air. GENERAL: Ms. Kaylah Nelson is a 53-year-old female. She is in no acute distress. She is able to answer questions appropriately. HEENT: Atraumatic, normocephalic. Pupils are equal, round, reactive to light. Extraocular movements intact. Mucous membranes are moist. NECK: Trachea midline. CARDIOVASCULAR: S1, S2. Tachycardic rate and rhythm. No rubs, gallops, murmurs. She has 1+ lower extremity pitting edema. She has +2 dorsalis pedal and radial pulses. Negative JVD or carotid bruits. PULMONARY: Inspiratory wheezes noted throughout posteriorly. No accessory muscle use or work of breathing noted. She actually had herself on room air. GASTROINTESTINAL: Soft, round, nontender. Positive bowel sounds x4. EXTREMITIES: Moves all extremities equally. Decreased range of motion. NEUROLOGIC: A and O x3. Follows commands. Sensory is intact. SKIN: Warm, dry, intact. LABORATORY DATA: White blood cells 9000, hemoglobin 13, hematocrit 40, platelet count 252,000. PH 7.46, pCO2 of 44, PO2 of 101, bicarb 29, base excess 6.5, saturation 95%. Lactate 3.2. Sodium 134, potassium 3.4, BUN 9, creatinine 0.9, glucose 355. A1c is 10.9. Calcium 9.7, bilirubin 0.40, AST 20, ALT 30. CK 329. Troponin less than 0.01. ProBNP less than 5. Albumin is 4.4. Triglycerides 108, total cholesterol 182, HDL 56. Serum lactate 3.4. Urinalysis: Positive nitrites, negative for white blood cells, 3+ bacteria, 3+ glucose. IMAGING: Chest x-ray: No acute cardiopulmonary abnormalities. EKG: Normal sinus rhythm, rate 99, QTc 420. ASSESSMENT AND PLAN: 1. Acute hypoxemic respiratory failure requiring oxygen with history of chronic obstructive pulmonary disease and asthma. Intravenous steroids, nebulizers, budesonide, pulmonary toilet, and Levaquin for antibiotic coverage. 2. Possible urinary tract infection, but likely colonization as there are no urinary symptoms. She has positive nitrites, but no white count, and she has bacteria in the urine. Will await culture, but Levaquin should cover it if there is a urinary bacterial infection. 3. History of congestive heart failure with preserved ejection fraction and some mild pulmonary hypertension. Will continue her oral Lasix, but she is going to be on some fluids to help get rid of the lactic acidosis that she has. 4. Lactic acidosis. Could be from dehydration. She is going to have intravenous fluid hydration. She is on antibiotic therapy. 5. Uncontrolled diabetes mellitus type 2. Will do pattern blood glucoses and sliding scale insulin. Hemoglobin A1c is 10.9. Diabetic diet. 6. Hypertension. Continue home medications. 7. Hypertriglyceridemia. It looks like she takes a statin. It was not added to her home medication list, and her cholesterol level is now normal with her medication regimen. 8. Gastroesophageal reflux disease. 9. History of stroke. 10. Deep venous thrombosis prophylaxis with Lovenox. Dictated by TIMOTHY Velázquez for Fredrick Gomez MD Addendum: Patient seen and examined by myself. Agree with TIMOTHY note. It reflects my assessment and plan. Patient is being admitted to hospital for acute respiratory failure secondary to COPD exacerbation. Also we found out she has a UTI. Will also optimize diabetes control because HbA1c is very elevated. cc: TIMOTHY Velázquez MD [facility]
[2018-11-18] MEDS: MUCINEX PO SCH ×2 (11:57→21:28)
[2018-11-18] MEDS: NORCO-10 PO PRN (12:20)
[2018-11-18] MEDS ORDERED: APRESOLINE IV PRN (12:30)
[2018-11-18] MEDS: NORVASC PO SCH (12:50)
[2018-11-18] MEDS: COZAAR PO SCH (12:50)
[2018-11-18] MEDS ORDERED: PULMICORT INH SCH (19:30)
[2018-11-18] MEDS ORDERED: VANCOMYCIN IV PER PHARMACY MISC SCH (22:00)
[2018-11-19] MEDS: HUMALOG (PARKWAY) SUBQ SCH ×6 (00:10→23:43)
[2018-11-19] MEDS: VANCOMYCIN 1 GM/NS 1 GM/250 ML IVPB IV SCH ×2 (00:11→06:26)
[2018-11-19] MEDS: LEVAQUIN 750 MG in NS 150 ML IV SCH (03:27)
[2018-11-19] MEDS: SOLU-MEDROL IV SCH ×3 (04:32→21:05)
[2018-11-19 06:49] LABS: HEMATOCRIT 37.5 % (37.0-47.0); HEMOGLOBIN 12.5 g/dL (12.0-16.0); IMM GRAN# 0.05 X1000 (0.0-0.04); IMM GRAN% 0.3 % (0.0-0.5); LYMPH# 1.68 X1000 (1.2-3.4); LYMPH% 11.3 % (20.5-51.1); MCH 29.1 PG (27-31); MCHC 33.3 g/dL (33-37); MCV 87.2 FL (81-99); MONO# 0.74 X1000 (0.11-0.59); MPV 12.7 FL (7.4-10.4); NEUT# 12.41 X1000 (1.4-6.5); NEUT% 83.4 % (42.2-75.2); PLT 238 X1000 (130-400); RDW 12.5 % (11.5-14.5); WBC 14.88 X1000 (4.8-10.8)
[2018-11-19 07:32] LABS: AGAP 12; ALKALINE PHOSPHATASE 74 U/L (32-104); BUN 12 mg/dL (8-22); CALCIUM 9.4 mg/dL (8.8-10.2); CHLORIDE 97 mmol/L (98-107); COSMO 284; CREATININE 0.5 mg/dL (0.5-0.9); ESTIMATED GFR > 60; GLUCOSE 383 mg/dL (70-104); GOT 25 U/L (10-30); GPT 28 U/L (10-36); POTASSIUM 4.3 mmol/L (3.5-5.1); SODIUM 134 mmol/L (136-145); TCO2 25 mmol/L (25-35)
[2018-11-19] MEDS: NORCO-10 PO PRN (07:45)
[2018-11-19] MEDS: DUONEB (A & A) INH SCH ×5 (08:15→22:52)
[2018-11-19] MEDS: LOVENOX SUBQ SCH (09:03)
[2018-11-19] MEDS: NORVASC PO SCH (09:04)
[2018-11-19] MEDS: COZAAR PO SCH (09:04)
[2018-11-19] MEDS: MUCINEX PO SCH ×2 (09:04→21:04)
[2018-11-19] MEDS: LASIX PO SCH (09:05)
[2018-11-19] MEDS: KLOR-CON PO SCH (09:09)
[2018-11-19] MEDS: LANTUS INSULIN SUBQ SCH (09:09)
[2018-11-19] MEDS: VANCOMYCIN 1,200 MG in NS 250 ML IV SCH ×2 (11:56→23:01)
--- NOTE | 2018-11-19 13:09 | PROGRESS NOTE ---
DATE: 11/19/2018 SUBJECTIVE: The patient reports feeling better, breathing better. Denies any fever or chills. OBJECTIVE: Vital Signs: Temperature 97.7 degrees, heart rate 85, respiratory rate 18, blood pressure 117/43, O2 saturation 95% on room air. General: This is a 53-year-old, morbidly obese, female, lying in bed in no acute distress. Cardiovascular: S1, S2 heard. No murmurs, gallops, or rubs. Regular rate and rhythm. Respiratory: Mild respiratory wheezing noted all over both pulmonary bases, basically better in comparing with yesterday. The patient is not using any accessory muscles or having work of breathing. Abdomen: Soft. Nontender to palpation. Bowel sounds present. No organomegaly. Extremities: No clubbing, cyanosis, but there is edema 1+ in both lower extremities. Neurological: The patient is alert and oriented x3. Moves all 4 extremities. LABORATORY DATA: The white cell count is 14.98, hemoglobin 12.5, hematocrit 37.5, platelets 238,000. BMP is unremarkable, except blood sugar is 383. ASSESSMENT AND PLAN: 1. Acute hypoxemic respiratory failure secondary to chronic obstructive pulmonary disease exacerbation. Will continue with intravenous steroids, DuoNeb, pulmonary toilet, and antibiotic coverage with Levaquin. Clinically, the patient is doing fine. 2. Possible urinary tract infection. I think the patient is not having any infection, so we are not going to treat her for that condition. 3. Uncontrolled diabetes mellitus. Because of elevated blood sugars and the fact that she is receiving Solu-Medrol for this chronic obstructive pulmonary disease exacerbation, I prefer to go ahead and start her on Lantus, and continue to monitor this patient closely. 4. Hypertension. Blood pressure is still elevated, so I am going to add hydralazine 25 mg by mouth 3 times per day to her current treatment. 5. Hypertriglyceridemia. Will continue with statin. 6. Gastroesophageal reflux disease, stable. Will continue to monitor. 7. Disposition. Will continue to monitor this patient closely. The patient should be able to be discharged in the next 24 to 48 hours. cc: Fredrick Gomez MD
[2018-11-19] MEDS: APRESOLINE PO SCH ×2 (14:47→21:05)
--- NOTE | 2018-11-19 16:56 | PROVIDER DOCUMENTATION ---
This chart was entered by Carson Randle Scribe, acting as scribe for Black Nicholas CRNP. HPI-Respiratory General - General Chief Complaint: Shortness of Breath Stated Complaint: SOB Time Seen by Provider: 11/17/18 23:06 Source: patient Allergies/Adverse Reactions: Patient Allergies Allergy/AdvReac Type Severity Reaction Status Date / Time lisinopril Allergy Severe SWELLING Verified 06/15/16 18:11 procaine HCl * Allergy Severe ANAPHYLAXIS Verified 06/15/16 18:11 [From Novocain] Penicillins Allergy Intermediate HIVES Verified 06/15/16 18:11 bupivacaine HCl * Allergy SWELLING Verified 06/15/16 18:11 [From Sensorcaine] latex AdvReac RASH Verified 06/15/16 18:11 Home Medications: Home Medication List Medication Instructions Recorded Confirmed Last Taken Type Potassium Chloride [Klor-Con M20] 20 meq PO DAILY #30 tab.er.prt 11/24/14 11/18/18 06/15/16 11:00 Rx Albuterol 2.5MG/Ipratrop 0.5MG 3 ml INH [id number] #30 neb 06/17/15 11/18/18 11/17/18 Rx [Duoneb (A & A)] Furosemide [Lasix] 40 mg PO DAILY #30 tablet 06/17/15 11/18/18 06/15/16 11:00 Rx Metformin [Glucophage] 500 mg PO BID #60 09/01/15 11/18/18 06/15/16 11:00 Rx Albuterol Sulfate Inhaler 2 puff IH Q4H PRN #1 inhaler 06/22/16 11/18/18 0 11/17/18 Rx [Ventolin Hfa] Hydrocodone/Acetaminophen 1 tab PO Q6HR PRN 07/20/16 11/18/18 Unknown History [Hydrocodone-Acetamin 10-325 mg] Amlodipine Besylate 10 mg PO DAILY 11/18/18 11/18/18 Unknown History Losartan Potassium 100 mg PO DAILY 11/18/18 11/18/18 Unknown History - History of Present Illness-Resp Nature of Presenting Problem: Pt is a 53 yof who presents to the ED with a CC of shortness of breath. Pt states she has had a cold for a few weeks. Pt states she is on 2L O2 at home and states she has had to increase the rate to 3L. Pt reports a hx of CHF and COPD. Pt states her breathing worsened today and was experiencing dyspnea. Upon examination the pt had 2-3+ edema bilaterally to her lower extremities. Quality of Pain: reports: dull Severity in ED: reports: mild Onset/Duration: reports: this afternoon Timing: reports: still present Cough Quality/Degree: reports: dry cough Episode Frequency: occasional episodes Current Respiratory Medication Therapy: Initiated see nurses note Associated Symptoms: reports: cough, hurts to breathe, shortness of breath, wheezing Similar Symptoms Previously?: Yes Recently seen or treated by another doctor?: No Review of Systems - Adult - REVIEW OF SYSTEMS - ADULT Constitutional: reports: see HPI Eyes: reports: no symptoms reported Ears, Nose, Mouth & Throat: reports: see HPI, sinus problem Cardiovascular: reports: no symptoms reported Respiratory: reports: see HPI, cough, shortness of breath, wheezing Gastrointestinal: reports: no symptoms reported Genitourinary: reports: no symptoms reported Musculoskeletal: reports: no symptoms reported Integumentary: reports: no symptoms reported Neurological: reports: no symptoms reported Psychiatric: reports: no symptoms reported Endocrine: reports: no symptoms reported Hematologic/Lymphatic: reports: no symptoms reported Allergic/Immunologic: reports: no symptoms reported All Other Systems: Reviewed and Negative Past History - Adult - PAST MEDICAL HISTORY-ADULT Review of Records: reports: Old Records Reviewed, Nursing Assessment Review, Medications Reviewed, Social history reviewed & non-contributory. Major Childhood Illnesses: reports: denies history Cardiovascular: reports: cardiac disease (CMG), CHF, HTN, hyperlipidemia Respiratory: reports: asthma, COPD (home o2) Gastrointestinal: reports: GERD Obstetrical/Gynecological: reports: denies history Genitourinary: reports: denies history Musculoskeletal: reports: chronic pain (hip, foot pain), other (peripheral edema) Neurological: reports: CVA, TIA Endocrine/Immune: reports: anemia, Diabetes Other Conditions: reports: denies history Additional History: Freq ER visits - PRIOR SURGERIES/PROCEDURES Surgical/Procedure History: reports: cholecystectomy, BTL, , breast - PRIOR HOSPITALIZATIONS Prior Hospitalizations: - IMMUNIZATION STATUS Childhood Immunizations: See Nurse Assessment Flu Vaccine: See Nurse Assessment - FAMILY HISTORY Family History: reviewed, not pertinent - SOCIAL HISTORY Smoking: non-smoker, quit greater than 1 year Substance Use: none/never, denies Alcohol Use Frequency: never Physical Exam-General - PHYSICAL EXAM-ADULT Initial Vital Signs Reviewed: Yes - CONSTITUTIONAL General Appearance: alert, mild distress - EYES Eyes: PERRL/EOMI - HEAD, EARS, NOSE, MOUTH & THROAT HENMT: moist mucous membranes - NECK Neck: non-tender, full range of motion - RESPIRATORY Respiratory: accessory muscle use, rhonchi, wheezing - CARDIOVASCULAR Cardiovascular: normal peripheral pulses, regular rate, rhythm, no gallop, no JVD - GASTROINTESTINAL (ABDOMEN) Abdominal Exam: non tender, soft - MUSCULOSKELETAL Extremity: normal range of motion, swelling, tenderness - SKIN Integumentary: normal color, warm/dry - NEUROLOGIC Neurologic: grossly normal, no motor/sensory deficits - PSYCHIATRIC Psych/Mental Status: normal mood/affect, normal thought content, normal thought process, oriented x 3 Progress - PLAN OF CARE/RESULTS Progress/Plan/Lab Results: 11/18/18 00:00 - Final Blood Orders Category Date Time Status Admit - [facility] Routine AdmDCTranf 11/18/18 00:45 Active FSBS/Accucheck Result AC + HS Care 11/18/18 02:31 Active Diabetic Diet Diet 11/18/18 02:31 Active CHEST-2 VIEWS [RAD] Stat Exams 11/17/18 23:17 Completed ABG [RESP] Routine Lab 11/17/18 23:20 Completed BLOOD CULTURE [BLDCUL] Stat Lab 11/18/18 01:42 Results CBC WITH DIFF [HEME] Stat Lab 11/17/18 23:27 Completed CK PROFILE [SP CHEM] Stat Lab 11/17/18 23:27 Completed COMPREHENSIVE METABOLIC PANEL [CHEM] Stat Lab 11/17/18 23:27 Completed GRAM STAIN [BLDCUL] Stat Lab 11/18/18 00:00 Results LACTATE, PLASMA [CHEM] Stat Lab 11/17/18 23:44 Completed TROPONIN T Stat Lab 11/17/18 23:27 Completed UA NIMS W/REFLEX CULT PL [URINALYSIS] Stat Lab 11/18/18 04:50 Completed pro-bnp [PRO B-NATRIURETIC PEPTIDE] Stat Lab 11/17/18 23:27 Completed Albuterol 2.5MG/Ipratrop 0.5MG [Duoneb (A & A)] Med 11/18/18 07:30 Active 3 ml INH [id number].WA Albuterol 2.5MG/Ipratrop 0.5MG [Duoneb (A & A)] Med 11/17/18 23:28 Discontinued 6 ml .ROUTE .STK-MED ONE Albuterol 2.5MG/Ipratrop 0.5MG [Duoneb (A & A)] Med 11/17/18 23:17 Discontinued 9 ml INH NOW ONE Azithromycin 500 mg/Ns [Zithromax 500 mg/Ns] Med 11/18/18 00:36 Discontinued 500 mg in 250 ml IV NOW Insulin Human Regular ([place] [Humulin R ([place])] Med 11/18/18 00:39 Discontinued 4 units SUBQ NOW ONE Insulin Lispro ([place]) [Humalog ([place])] Med 11/18/18 07:00 Discontinued See Protocol SUBQ 0700,1100,1600,2100 Levofloxacin 750 mg/D5w [Levaquin 750 mg/D5w] Med 11/18/18 01:12 Discontinued 750 mg in 150 ml .ROUTE As directed Levofloxacin [Levaquin] 750 mg Med 11/18/18 00:42 Discontinued 0.9% Sodium Chloride Inj [Ns] 150 ml IV NOW Levofloxacin [Levaquin] 750 mg Med 11/19/18 02:00 Active 0.9% Sodium Chloride Inj [Ns] 150 ml IV Q24H Methylprednisolone Sod Succ [Solu-Medrol] Med 11/17/18 23:17 Discontinued 125 mg IV NOW ONE Methylprednisolone Sod Succ [Solu-Medrol] Med 11/18/18 02:31 Discontinued 60 mg IV Q8H Aerosol Treatments Routine Oth 11/17/18 23:17 Completed Aerosol Treatments Routine Oth 11/17/18 23:17 Completed Aerosol Treatments Routine Oth 11/18/18 02:31 Completed Aerosol Treatments Stat Oth 11/17/18 23:17 Completed Aerosol Treatments Stat Oth 11/17/18 23:17 Completed Aerosol Treatments Stat Oth 11/18/18 02:31 Completed EKG [EKG] Stat Ther 11/17/18 22:36 Draft Transfer/Admit Order [TRANSFER] Routine Transfer 11/18/18 00:46 Completed Result Diagrams: 11/19/18 06:19 11/19/18 06:19 Departure - Departure Date of Disposition Decision: 11/18/18 Time of Disposition Decision: 02:05 DIAGNOSIS: COPD exacerbation Disposition: ADMITTED INPATIENT 09 Certified Medical Emergency: Emergent Condition: Critical - Critical Care Note This patient required my direct & personal management of CC.: No Attestation - Physician/ BRENNA Attestation Patient care was provided by Advanced Practice Provider:: Yes Advanced Practice Provider documentation review:: The Mid-level provider documentation, treatment plan and medical decision making was reviewed by the physician who agrees with all treatment and medical decision making by the MLP. The physician spent face to face time with patient:: No Advanced Practice Provider documentation review:: Supervising physician onsite and consulted in the evaluation and care of this patient. The physician did not have a face to face encounter with the patient. This chart was documented by the indicated scribe, (Carson Randle Scribe) and accurately reflects the services I performed and decisions made by me, Black Nicholas CRNP, as attested by the provider's signature.
--- NOTE | 2018-11-20 00:03 | ECHO REPORT ---
ORDER DATE: 11/19/2018 MEASUREMENTS: 1. Septal thickness 1.3. 2. Posterior wall thickness 1.3. 3. Left ventricular internal diameter diastole 3.7. 4. Left ventricular internal diameter in systole 1.9. 5. Aortic root 2.9. 6. Left atrium 4.1. SUMMARY: 1. Technically difficult study due to limited acoustic window quality. 2. Aortic valve is trileaflet and opens normally on 2-dimensional images. Peak gradient across aortic valve is less than 10 mmHg. Mitral and tricuspid valves are without evidence of structural abnormality while pulmonic valve is not well demonstrated. There is very mild tricuspid regurgitation. Aortic root is normal size. 3. Normal left ventricular chamber size with mild concentric left hypertrophy is demonstrated. Estimated left ejection fraction appears to be at least 75%. No obvious wall motion abnormality can be appreciated. Doppler suggests grade 1 left ventricular diastolic dysfunction. Left atrium is mildly enlarged. Right atrium and right ventricle are normal in size with grossly preserved right ventricular systolic function. 4. No pericardial effusion. 5. Appearance of inferior vena cava suggests normal central venous pressure. cc: MD Fredrick Gonzales MD
[2018-11-20] MEDS: LEVAQUIN 750 MG in NS 150 ML IV SCH (01:58)
[2018-11-20] MEDS: SOLU-MEDROL IV SCH (04:51)
[2018-11-20 06:06] LABS: HEMATOCRIT 37.8 % (37.0-47.0); HEMOGLOBIN 12.4 g/dL (12.0-16.0); IMM GRAN% 0.8 % (0.0-0.5); LYMPH# 1.91 X1000 (1.2-3.4); LYMPH% 14.7 % (20.5-51.1); MCH 28.8 PG (27-31); MCHC 32.8 g/dL (33-37); MCV 87.9 FL (81-99); MONO# 0.58 X1000 (0.11-0.59); MONO% 4.5 % (1.7-9.3); MPV 12.2 FL (7.4-10.4); NEUT# 10.36 X1000 (1.4-6.5); PLT 234 X1000 (130-400); RDW 12.6 % (11.5-14.5); WBC 12.95 X1000 (4.8-10.8)
[2018-11-20] MEDS: HUMALOG (PARKWAY) SUBQ SCH ×4 (06:08→21:25)
[2018-11-20] MEDS: NORCO-10 PO PRN ×2 (06:23→21:31)
[2018-11-20 06:40] LABS: AGAP 11; ALBUMIN 3.9 g/dL (3.5-5.0); ALKALINE PHOSPHATASE 69 U/L (32-104); BUN 13 mg/dL (8-22); CALCIUM 9.9 mg/dL (8.8-10.2); CHLORIDE 99 mmol/L (98-107); COSMO 286; CREATININE 0.5 mg/dL (0.5-0.9); ESTIMATED GFR > 60; GLUCOSE 290 mg/dL (70-104); GOT 44 U/L (10-30); GPT 42 U/L (10-36); POTASSIUM 4.5 mmol/L (3.5-5.1); SODIUM 138 mmol/L (136-145); TCO2 28 mmol/L (25-35)
[2018-11-20] MEDS: DUONEB (A & A) INH SCH ×4 (07:49→19:28)
[2018-11-20] MEDS: APRESOLINE PO SCH ×3 (08:03→21:25)
[2018-11-20] MEDS: COZAAR PO SCH (08:04)
[2018-11-20] MEDS: LOVENOX SUBQ SCH (08:04)
[2018-11-20] MEDS: LANTUS INSULIN SUBQ SCH ×2 (08:04→21:25)
[2018-11-20] MEDS: MUCINEX PO SCH ×2 (08:04→21:24)
[2018-11-20] MEDS: NORVASC PO SCH (08:04)
[2018-11-20] MEDS: LASIX PO SCH (08:04)
[2018-11-20] MEDS: KLOR-CON PO SCH (08:04)
--- NOTE | 2018-11-20 11:25 | PROGRESS NOTE ---
DATE: 11/20/2018 SUBJECTIVE: The patient reports breathing better. Denies any fever or chills. OBJECTIVE: Vital Signs: Temperature 97.9 degrees, heart rate 79, respiratory rate 20, blood pressure 180/88, O2 saturation 96% on 2 L nasal cannula. General: This is a 53-year-old morbidly obese female lying in bed in no acute distress. Cardiovascular: S1 and S2 heard. No murmurs, gallops or rubs. Regular rate and rhythm. Respiratory: Mild respiratory wheezing is definitely much better compared with yesterday. The patient is not using any accessory muscles or having work of breathing. Abdomen: Soft. Nontender to palpation. Bowel sounds present. No organomegaly. Extremities: No clubbing, cyanosis or edema. Peripheral pulses present in both legs. Neurological: The patient is alert and oriented x3. Moves all 4 extremities. LABORATORY DATA: Reviewed. ASSESSMENT AND PLAN: 1. Acute hypoxemic respiratory failure secondary to COPD exacerbation. We will continue with antibiotics, pulmonary toilet and DuoNeb. Because of his uncontrolled diabetes we will stop IV steroids. 2. Urinary tract infection has been ruled out. 3. Uncontrolled diabetes mellitus. We have started on Lantus and we are going to increase the dose to b.i.d. We will continue to monitor the patient closely. 4. Hypertension. Blood pressure is still elevated so we will increase the dose of hydralazine from 25 to 50 three times per day and we will go from there. 5. Hyperlipidemia. We will continue with a statin. 6. Gastroesophageal reflux disease. We will continue to monitor. 7. Disposition. We will continue to monitor this patient closely. cc: Fredrick Gomez MD
[2018-11-21] MEDS: LEVAQUIN 750 MG in NS 150 ML IV SCH (02:06)
[2018-11-21 05:35] LABS: BASO# 0.01 X1000 (0.0-0.2); BASO% 0.1 % (0.0-0.8); EOS# 0.19 X1000 (0.0-0.7); EOS% 1.7 % (0.0-10.0); HEMOGLOBIN 12.9 g/dL (12.0-16.0); IMM GRAN# 0.09 X1000 (0.0-0.04); IMM GRAN% 0.8 % (0.0-0.5); LYMPH% 42.6 % (20.5-51.1); MCH 28.2 PG (27-31); MCHC 32.3 g/dL (33-37); MCV 87.5 FL (81-99); MONO# 0.91 X1000 (0.11-0.59); MONO% 7.9 % (1.7-9.3); MPV 12.1 FL (7.4-10.4); NEUT# 5.41 X1000 (1.4-6.5); NEUT% 46.9 % (42.2-75.2); PLT 233 X1000 (130-400); RBC 4.57 XMIL (4.2-5.4); RDW 12.8 % (11.5-14.5); WBC 11.51 X1000 (4.8-10.8)
[2018-11-21] MEDS: DUONEB (A & A) INH SCH ×2 (05:46→07:40)
[2018-11-21] MEDS: HUMALOG (PARKWAY) SUBQ SCH (06:24)
[2018-11-21 06:27] LABS: AGAP 10; ALBUMIN 3.7 g/dL (3.5-5.0); ALKALINE PHOSPHATASE 61 U/L (32-104); BUN 12 mg/dL (8-22); CALCIUM 9.5 mg/dL (8.8-10.2); CHLORIDE 97 mmol/L (98-107); COSMO 278; CREATININE 0.5 mg/dL (0.5-0.9); ESTIMATED GFR > 60; GLUCOSE 217 mg/dL (70-104); GOT 31 U/L (10-30); GPT 49 U/L (10-36); POTASSIUM 3.6 mmol/L (3.5-5.1); SODIUM 136 mmol/L (136-145); TCO2 30 mmol/L (25-35); TOTAL PROTEIN 6.5 g/dL (6.3-8.3)
[2018-11-21 08:44] VITALS: BP 129/104
[2018-11-21] MEDS: MUCINEX PO SCH (08:51)
[2018-11-21] MEDS: LOVENOX SUBQ SCH (08:52)
[2018-11-21] MEDS: APRESOLINE PO SCH (08:52)
[2018-11-21] MEDS: COZAAR PO SCH (08:52)
[2018-11-21] MEDS: LASIX PO SCH (08:52)
[2018-11-21] MEDS: KLOR-CON PO SCH (08:52)
[2018-11-21] MEDS: LANTUS INSULIN SUBQ SCH (08:52)
[2018-11-21] MEDS: NORVASC PO SCH (08:52)
--- NOTE | 2018-11-21 11:35 | DISCHARGE SUMMARY ---
ADMISSION DATE: 11/18/2018 DISCHARGE DATE: 11/21/2018 ADMISSION DIAGNOSES: 1. Acute hypoxemic respiratory failure requiring oxygen with history of chronic obstructive pulmonary disease and asthma. 2. Possible urinary tract infection, but likely colonization as there were no urinary symptoms. 3. History of congestive heart failure with preserved ejection fraction and some mild pulmonary hypertension. 4. Lactic acidosis. 5. Uncontrolled diabetes mellitus type 2. 6. Hypertension. 7. Hypertriglyceridemia. 8. Gastroesophageal reflux disease. 9. History of stroke. DISCHARGE DIAGNOSES: 1. Acute hypoxemic respiratory failure secondary to chronic obstructive pulmonary disease exacerbation. 2. Urinary tract infection was ruled out. 3. Uncontrolled diabetes mellitus type 2, started on Lantus. 4. Hypertension. Hydralazine was increased. 5. Hyperlipidemia, continue on statin. 6. Gastroesophageal reflux disease. 7. One blood culture set positive for Streptococcus mitis and Streptococcus oralis, questionable if this was a contamination. 8. Grade 1 diastolic dysfunction. CONSULTATIONS: None. SURGERIES AND PROCEDURES: None. HOSPITAL COURSE: Ms. Kaylah Nelson is a 53-year-old female with a medical history of reported CHF and preserved ejection fraction, COPD on home oxygen 2 L, hypertension, high cholesterol, uncontrolled diabetes, and a stroke in 2014 that left her with some visual deficits in the left eye and some memory deficit deficits. She came in with complaints of 3 weeks' worth of shortness of breath, coughing up green phlegm, chest pain related to the coughing and taking a deep breath which was slightly worse at night. She described it as 8/10, felt tight, but improved after she received respiratory treatments. She reported subjective fever, chills. Upon auscultation she had expiratory wheezes throughout. She had been requiring more of her home oxygen than usual, was diagnosed with hypoxemic respiratory failure. Her CO2 was normal and improved after she received oxygen and nebulizers. Normal white count. Got some fluids for elevated lactate. She did have some lower extremity edema. She had blood cultures, urine culture and sputum performed while she was here secondary to the elevated lactate. One of the blood cultures came back as positive for Streptococcus mitis and Streptococcus oralis. The 2nd blood culture set was negative. Urine was negative and sputum had 2+ gram-positive cocci, but did not officially grow out anything. One blood culture set that was positive for Streptococcus mitis and Streptococcus oralis was resistant to erythromycin and tetracycline and indeterminate on the clindamycin. So, was going to go home for treatment with that with Levaquin. She had an echo while she was here. It showed normal EF. She did have actual grade 1 left ventricular diastolic dysfunction with the left atrium being mildly enlarged. She continued on IV steroids, nebulizers, pulmonary toilet, antibiotic coverage with Levaquin. The urine was ruled out for urinary tract infection. Her blood sugars were quite elevated secondary to receiving steroids. She was started on Lantus. Given her blood pressure being higher, her hydralazine was increased and further to triglycerides being elevated she continued on a statin. Eventually steroids were stopped. DISCHARGE VITAL SIGNS: Temperature 98 degrees, heart rate 86, respiratory rate 18, blood pressure 129/104, O2 saturation 96% on room air. LABORATORY DATA: White blood cells 14338, hemoglobin 12, hematocrit 40, platelet count 233,000. Sodium 136, potassium 3.6, BUN 12, creatinine 0.5, glucose 217, calcium 9.5, bilirubin 0.20, AST 31, ALT 49. Albumin 3.7. IMAGING: Chest x-ray, no acute pulmonary symptoms. Echocardiogram, EF 75%, grade 1 diastolic dysfunction with mildly enlarged left atrium. EKG, sinus rhythm, rate 99, QTc is 420. DISCHARGE DIET: Diabetic. DISCHARGE ACTIVITY: As tolerated. DISCHARGE MEDICATIONS: 1. [place] 1 tablet p.o. every 6 hours p.r.n. 2. Amlodipine besylate 10 mg p.o. daily. 3. Losartan potassium 100 mg p.o. daily. 4. Apresoline 50 mg p.o. t.i.d. 5. Albuterol/Atrovent 4 times a day as needed. 6. Metformin 500 mg p.o. twice daily. 7. Potassium chloride 20 mEq p.o. daily. 8. Lantus 15 units subcutaneous twice daily. 9. Lasix 40 mg p.o. daily. 10. Levaquin 750 mg p.o. nightly for 7 days. PHYSICIAN FOLLOWUP: Dr. Escoto. DISCHARGE INSTRUCTIONS: Notify MD or return to the emergency department immediately for any of the following: Shortness of breath, chest pain increase or bloody sputum, dark, cloudy or bloody urine, inability to urinate. Keep all followup appointments. Drink enough water to keep the urine clear and pale yellow. Take all prescribed medications as directed, especially antibiotic. Return to the emergency department for any new or worsening symptoms. DISCHARGE DISPOSITION: Home. Dictated by TIMOTHY Velázquez for Fredrick Gomez MD Addendum: Patient seen and examined by myself. Agree with TIMOTHY note. It reflects my assessment and plan. Patient is discharged from hospital in stable condition. Will be seen by PCP in a week. cc: TIMOTHY Velázquez MD [facility]
[2018-11-21] MEDS ORDERED: LEVAQUIN PO SCH (21:00)
== END 2018-11-21 10:47 | disposition home or self-care (01) | DRG 190 ==
LOC: P.ED 22:36 → P.MEDSURG 11-18 01:51
PROVIDERS: ADMIT Internal Medicine; ATTEND Internal Medicine

== ENCOUNTER 2019-03-22 02:22 | Inpatient (IN) ==
[2019-03-22] MEDS ORDERED: DUONEB (A & A) INH ONE (02:25)
[2019-03-22] MEDS ORDERED: SOLU-MEDROL IV ONE (02:25)
[2019-03-22] MEDS ORDERED: NS 1,000 ML IV ONE ×2 (02:25→04:16)
[2019-03-22] MEDS ORDERED: LASIX IV ONE (02:25)
[2019-03-22 03:05] LABS: BE 5.5 mmoll (-3.0-3.0); BLOOD TYPE ARTERIAL; HCO3-(ACT) 29.2 mmoll (20.0-26.0); METHB 0.9 % (0.0-1.5); O2(CT) 19.5 mL/dL (15.0-23.0); O2HB 96.2 % (95.0-99.0); PO2(98.6) 124 mmHg (60-100); SAMPLE BLOOD; SAO2 99.5 % (95.0-100.0); THB 14.3 g/dL (11.5-17.4); pH(98.6) 7.35 (7.35-7.45)
[2019-03-22 03:07] LABS: ALLEN TEST NO; MODALITY COOL AEROSOL; PCO2(98.6) 60 mmHg (35-45)
[2019-03-22 03:14] LABS: URINE SOURCE CATH
[2019-03-22 03:17] LABS: BASO# 0.03 X1000 (0.0-0.2); BASO% 0.3 % (0.0-0.8); EOS# 1.27 X1000 (0.0-0.7); EOS% 14.6 % (0.0-10.0); HEMATOCRIT 39.7 % (37.0-47.0); IMM GRAN# 0.02 X1000 (0.0-0.04); IMM GRAN% 0.2 % (0.0-0.5); LYMPH# 3.85 X1000 (1.2-3.4); LYMPH% 44.2 % (20.5-51.1); MCH 28.4 PG (27-31); MCHC 32.7 g/dL (33-37); MCV 86.9 FL (81-99); MONO% 6.9 % (1.7-9.3); NEUT# 2.95 X1000 (1.4-6.5); NEUT% 33.8 % (42.2-75.2); PLT 244 X1000 (130-400); RBC 4.57 XMIL (4.2-5.4); RDW 12.5 % (11.5-14.5); WBC 8.72 X1000 (4.8-10.8)
[2019-03-22 03:20] LABS: BILIRUBIN URINE NEGATIVE (NEGATIVE); BLOOD URINE NEGATIVE (NEGATIVE); COLOR STRAW; GLUCOSE URINE >1000 mg/dL (NEGATIVE); KETONE URINE NEGATIVE (NEGATIVE); LEUKOCYTES URINE NEGATIVE (NEGATIVE); NITRITE URINE NEGATIVE (NEGATIVE); PH URINE 5.5; PROTEIN URINE NEGATIVE (NEGATIVE); SP GRAVITY URINE 1.018; TURBIDITY URINE CLEAR (CLEAR); UR EPITHELIAL CELLS <10 /HPF (<10); URINE BACTERIA NEGATIVE /HPF; URINE RBC <10 /HPF (<10); URINE WBC <10 /HPF (<10); UROBILINOGEN URINE NORMAL (NORMAL)
--- NOTE | 2019-03-22 03:25 | PROVIDER DOCUMENTATION ---
HPI-Respiratory General - General Chief Complaint: Shortness of Breath Stated Complaint: SOB Time Seen by Provider: 03/22/19 02:23 Source: patient, EMS Allergies/Adverse Reactions: Patient Allergies Allergy/AdvReac Type Severity Reaction Status Date / Time lisinopril Allergy Severe SWELLING Verified 03/22/19 03:20 procaine HCl * Allergy Severe ANAPHYLAXIS Verified 03/22/19 03:20 [From Novocain] Penicillins Allergy Intermediate HIVES Verified 03/22/19 03:20 bupivacaine HCl * Allergy SWELLING Verified 03/22/19 03:20 [From Sensorcaine] latex AdvReac RASH Verified 03/22/19 03:20 Home Medications: Home Medication List Medication Instructions Recorded Confirmed Last Taken Type Albuterol 2.5MG/Ipratrop 0.5MG 3 ml INH [id number] #30 neb 06/17/15 03/22/19 11/17/18 Rx [Duoneb (A & A)] Furosemide [Lasix] 40 mg PO DAILY #30 tablet 06/17/15 03/22/19 06/15/16 11:00 Rx Albuterol Sulfate Inhaler 2 puff IH Q4H PRN #1 inhaler 06/22/16 03/22/19 11/17/18 Rx [Ventolin Hfa] Hydrocodone/Acetaminophen 1 tab PO Q6HR PRN 07/20/16 03/22/19 Unknown History [Hydrocodone-Acetamin 10-325 mg] Amlodipine Besylate 10 mg PO DAILY 11/18/18 03/22/19 Unknown History Losartan Potassium 100 mg PO DAILY 11/18/18 03/22/19 Unknown History Hydralazine [Apresoline] 50 mg PO TID@0800,1400,2100 #90 tab 11/21/18 03/22/19 Unknown Rx Metformin [Glucophage] 850 mg PO BID 03/22/19 03/22/19 Unknown History - History of Present Illness-Resp Nature of Presenting Problem: Patient stats she's been getting sick over the last week or so, much worse luz last two days. Quality of Pain: reports: none Severity in ED: reports: severe Onset/Duration: reports: gradual, 1 week ago (much worse last 2 days) Timing: reports: still present, constant, changing over time, getting worse Exposure: reports: unknown cause Cough Quality/Degree: reports: moderate, productive cough (clear) Episode Frequency: occasional episodes Current Respiratory Medication Therapy: Initiated albuterol/atrovent inhale, Initiated steroid inhaler Modifying Factors: improves with: albuterol nebulizer (en route), oxygen. worse with: exertion, coughing, lying down Associated Symptoms: reports: chest pain/soreness, cough, dizziness, hurts to breathe, hyperventilating, lightheadedness, muscle/bodyaches, nasal congestion, short of breath, sweaty, wheezing, other (16 pound weight gain this week) Similar Symptoms Previously?: Yes (chf and copd) Recently seen or treated by another doctor?: Yes (sees tata) Review of Systems - Adult - REVIEW OF SYSTEMS - ADULT Constitutional: reports: see HPI, chills, weight gain Eyes: reports: no symptoms reported Ears, Nose, Mouth & Throat: reports: no symptoms reported Cardiovascular: reports: see HPI, chest pain, edema, orthopnea. denies: heart murmur, irregular heart rate, palpitations, poor circulation, PND, syncope Respiratory: reports: see HPI, cough, dyspnea on exertion, shortness of breath, wheezing. denies: hemoptysis, pleurisy Gastrointestinal: reports: no symptoms reported Genitourinary: reports: no symptoms reported Musculoskeletal: reports: no symptoms reported Integumentary: reports: no symptoms reported Neurological: reports: no symptoms reported Psychiatric: reports: no symptoms reported Endocrine: reports: no symptoms reported Hematologic/Lymphatic: reports: no symptoms reported Allergic/Immunologic: reports: no symptoms reported All Other Systems: Reviewed and Negative Past History - Adult - PAST MEDICAL HISTORY-ADULT Review of Records: reports: Old Records Reviewed, Nursing Assessment Review, Medications Reviewed, Social history reviewed & non-contributory. Major Childhood Illnesses: reports: denies history Cardiovascular: reports: cardiac disease (CMG), CHF, HTN, hyperlipidemia Respiratory: reports: asthma, COPD (home o2) Gastrointestinal: reports: GERD Obstetrical/Gynecological: reports: denies history Genitourinary: reports: denies history Musculoskeletal: reports: chronic pain (hip, foot pain), other (peripheral edema) Neurological: reports: CVA, TIA Psychiatric: reports: denies history Endocrine/Immune: reports: anemia, Diabetes Other Conditions: reports: denies history Additional History: Freq ER visits - PRIOR SURGERIES/PROCEDURES Surgical/Procedure History: reports: cholecystectomy, BTL, , breast - PRIOR HOSPITALIZATIONS Prior Hospitalizations: - IMMUNIZATION STATUS Childhood Immunizations: See Nurse Assessment Flu Vaccine: See Nurse Assessment - FAMILY HISTORY Family History: reviewed, not pertinent - SOCIAL HISTORY Smoking: quit greater than 1 year, greater than 1 pack/day Substance Use: none/never Alcohol Use Frequency: rarely Living Situation: family Physical Exam-General - PHYSICAL EXAM-ADULT Initial Vital Signs Reviewed: Yes (Tacycardic and tachypneic, otherwise normal) - CONSTITUTIONAL General Appearance: moderate distress, obese - EYES Eyes: PERRL/EOMI, pink conjunctivae - HEAD, EARS, NOSE, MOUTH & THROAT HENMT: normocephalic/atraumatic, moist mucous membranes, normal ENT inspection. negative: hearing deficit - RESPIRATORY Respiratory: chest non-tender, no pleuratic chest pain, respiratory distress (moderated), decreased breath sounds, rhonchi, wheezing, increased rate. negative: accessory muscle use, crackles, rales - CARDIOVASCULAR Cardiovascular: normal peripheral pulses, regular rate, rhythm, no edema, no gallop, no JVD, no murmur, tachycardia. negative: JVD - GASTROINTESTINAL (ABDOMEN) Abdominal Exam: normal bowel sounds, non tender, soft, no organomegaly, no pulsatile mass - LYMPHATIC Lymphatic: no adenopathy - MUSCULOSKELETAL Back Exam: normal inspection, no CVA tenderness, no vertebral tenderness. negative: decreased range of motion Extremity: normal range of motion, non-tender, no calf tenderness, normal capillary refill, pedal edema Peripheral Pulses: radial (L): 2+ - SKIN Integumentary: normal color, normal turgor - NEUROLOGIC Neurologic: veneer stapler II-XII nml as tested, grossly normal, no motor/sensory deficits - PSYCHIATRIC Psych/Mental Status: normal mood/affect, normal thought content, normal thought process, oriented x 3 Progress - PLAN OF CARE/RESULTS Progress/Plan/Lab Results: Vital Signs - 8 hr 03/22/19 02:22 03/22/19 02:31 Temperature 98.7 F Pulse Rate 108 H 108 H Respiratory Rate 32 H 18 Blood Pressure 163/76 O2 Sat by Pulse Oximetry 96 96 Laboratory Results - last 24 hr 03/22/19 03/22/19 03/22/19 02:14 02:28 02:28 WBC 8.72 RBC 4.57 Hgb 13.0 Hct 39.7 MCV 86.9 MCH 28.4 MCHC 32.7 L RDW Std Deviation 12.5 Plt Count 244 MPV 12.0 H Immature Gran % (Auto) 0.2 Neut % (Auto) 33.8 L Lymph % (Auto) 44.2 [place] % (Auto) 6.9 Eos % (Auto) 14.6 H Baso % (Auto) 0.3 Immature Gran # (Auto) 0.02 Neut # (Auto) 2.95 Lymph # (Auto) 3.85 H [place] # (Auto) 0.60 H Eos # (Auto) 1.27 H Baso # (Auto) 0.03 PT INR PTT (Actin FS) Specimen Type ARTERIAL Sample Site L BRACHIAL pH 7.35 pCO2 60 H* pO2 124 H HCO3 29.2 H Base Excess 5.5 H Oxyhemoglobin 96.2 ABG O2 Sat (Calculated) 19.5 ABG O2 Saturation 99.5 ABG Carboxyhemoglobin 2.40 ABG Methemoglobin 0.9 Justino Test NO A-a O2 Difference 115.0 Total Hemoglobin 14.3 Lactate 1.70 Liter Flow 6.0 Blood Gas Modality COOL AEROSOL FiO2 % 44.0 Sodium Potassium Chloride Carbon Dioxide Anion Gap BUN Creatinine Estimated GFR/1.73 m2 BUN/Creatinine Ratio Glucose Calculated Osmolality Calcium Magnesium Total Bilirubin AST ALT Alkaline Phosphatase Creatine Kinase Troponin T High Sens Ypt-T-Iibwoboeehb Pept 5 Total Protein Albumin Globulin Albumin/Globulin Ratio Plasma Lactate Urine Source Urine Color Urine Turbidity Urine pH Ur Specific [place] Urine Protein Ur Glucose (Stick) Ur Ketones (Stick) Urine Blood Urine Nitrite Urine Bilirubin Urobilinogen Dipstick Urine Leukocytes Urine WBC (Auto) Urine RBC (Auto) U Epithel Cells (Auto) Urine Bacteria (Auto) Influenza A (Rapid) Influenza B (Rapid) 03/22/19 03/22/19 03/22/19 02:28 02:28 02:28 WBC RBC Hgb Hct MCV MCH MCHC RDW Std Deviation Plt Count MPV Immature Gran % (Auto) Neut % (Auto) Lymph % (Auto) [place] % (Auto) Eos % (Auto) Baso % (Auto) Immature Gran # (Auto) Neut # (Auto) Lymph # (Auto) [place] # (Auto) Eos # (Auto) Baso # (Auto) PT 12.8 INR 0.92 PTT (Actin FS) 28.1 Specimen Type Sample Site pH pCO2 pO2 HCO3 Base Excess Oxyhemoglobin ABG O2 Sat (Calculated) ABG O2 Saturation ABG Carboxyhemoglobin ABG Methemoglobin Justino Test A-a O2 Difference Total Hemoglobin Lactate Liter Flow Blood Gas Modality FiO2 % Sodium 138 Potassium 3.7 Chloride 96 L Carbon Dioxide 25 Anion Gap 17 BUN 7 L Creatinine 0.5 Estimated GFR/1.73 m2 > 60 BUN/Creatinine Ratio 14 Glucose 301 H Calculated Osmolality 285 Calcium 9.5 Magnesium 2.1 Total Bilirubin 0.40 AST 14 ALT 19 Alkaline Phosphatase 73 Creatine Kinase 173 Troponin T High Sens 8 Mlh-K-Dohsoudufos Pept Total Protein 7.3 Albumin 4.3 Globulin 3.0 Albumin/Globulin Ratio 1.0 Plasma Lactate Urine Source Urine Color Urine Turbidity Urine pH Ur Specific [place] Urine Protein Ur Glucose (Stick) Ur Ketones (Stick) Urine Blood Urine Nitrite Urine Bilirubin Urobilinogen Dipstick Urine Leukocytes Urine WBC (Auto) Urine RBC (Auto) U Epithel Cells (Auto) Urine Bacteria (Auto) Influenza A (Rapid) Influenza B (Rapid) 03/22/19 03/22/19 03/22/19 02:28 03:00 03:00 WBC RBC Hgb Hct MCV MCH MCHC RDW Std Deviation Plt Count MPV Immature Gran % (Auto) Neut % (Auto) Lymph % (Auto) [place] % (Auto) Eos % (Auto) Baso % (Auto) Immature Gran # (Auto) Neut # (Auto) Lymph # (Auto) [place] # (Auto) Eos # (Auto) Baso # (Auto) PT INR PTT (Actin FS) Specimen Type Sample Site pH pCO2 pO2 HCO3 Base Excess Oxyhemoglobin ABG O2 Sat (Calculated) ABG O2 Saturation ABG Carboxyhemoglobin ABG Methemoglobin Justino Test A-a O2 Difference Total Hemoglobin Lactate Liter Flow Blood Gas Modality FiO2 % Sodium Potassium Chloride Carbon Dioxide Anion Gap BUN Creatinine Estimated GFR/1.73 m2 BUN/Creatinine Ratio Glucose Calculated Osmolality Calcium Magnesium Total Bilirubin AST ALT Alkaline Phosphatase Creatine Kinase Troponin T High Sens Lqe-P-Quinytfkqqb Pept Total Protein Albumin Globulin Albumin/Globulin Ratio Plasma Lactate 1.9 Urine Source CATH Urine Color STRAW Urine Turbidity CLEAR Urine pH 5.5 Ur Specific [place] 1.018 Urine Protein NEGATIVE Ur Glucose (Stick) >1000 A Ur Ketones (Stick) NEGATIVE Urine Blood NEGATIVE Urine Nitrite NEGATIVE Urine Bilirubin NEGATIVE Urobilinogen Dipstick NORMAL Urine Leukocytes NEGATIVE Urine WBC (Auto) <10 Urine RBC (Auto) <10 U Epithel Cells (Auto) <10 Urine Bacteria (Auto) NEGATIVE Influenza A (Rapid) NEGATIVE Influenza B (Rapid) NEGATIVE 03/22/19 03:40 WBC RBC Hgb Hct MCV MCH MCHC RDW Std Deviation Plt Count MPV Immature Gran % (Auto) Neut % (Auto) Lymph % (Auto) [place] % (Auto) Eos % (Auto) Baso % (Auto) Immature Gran # (Auto) Neut # (Auto) Lymph # (Auto) [place] # (Auto) Eos # (Auto) Baso # (Auto) PT INR PTT (Actin FS) Specimen Type ARTERIAL Sample Site L BRACHIAL pH 7.40 pCO2 51 H* pO2 91 HCO3 29.1 H Base Excess 5.4 H Oxyhemoglobin 95.0 ABG O2 Sat (Calculated) 19.2 ABG O2 Saturation 98.2 ABG Carboxyhemoglobin 2.20 ABG Methemoglobin 1.1 Justino Test NO A-a O2 Difference 102.0 Total Hemoglobin 14.3 Lactate 1.30 Liter Flow 4.0 Blood Gas Modality CANNULA FiO2 % 36.0 Sodium Potassium Chloride Carbon Dioxide Anion Gap BUN Creatinine Estimated GFR/1.73 m2 BUN/Creatinine Ratio Glucose Calculated Osmolality Calcium Magnesium Total Bilirubin AST ALT Alkaline Phosphatase Creatine Kinase Troponin T High Sens Wte-G-Dcoxfznwddi Pept Total Protein Albumin Globulin Albumin/Globulin Ratio Plasma Lactate Urine Source Urine Color Urine Turbidity Urine pH Ur Specific [place] Urine Protein Ur Glucose (Stick) Ur Ketones (Stick) Urine Blood Urine Nitrite Urine Bilirubin Urobilinogen Dipstick Urine Leukocytes Urine WBC (Auto) Urine RBC (Auto) U Epithel Cells (Auto) Urine Bacteria (Auto) Influenza A (Rapid) Influenza B (Rapid) Orders Category Date Time Status Cardiac Monitoring DIRECTED Care 03/22/19 02:23 Active Valenzuela Cath Insertion ORDERED Care 03/22/19 03:14 Active IV Insertion ORDERED Care 03/22/19 02:23 Completed Nursing- Obtain EKG once Care 03/22/19 02:24 Active CHEST-1 VIEW [RAD] Stat Exams 03/22/19 02:23 Taken ABG [RESP] Routine Lab 03/22/19 02:14 Completed ABG [RESP] Routine Lab 03/22/19 03:40 Completed BLOOD CULTURE [BLDCUL] Stat Lab 03/22/19 02:23 Ordered CBC WITH DIFF [HEME] Stat Lab 03/22/19 02:28 Completed CK PROFILE [SP CHEM] Stat Lab 03/22/19 02:28 Completed COMPREHENSIVE METABOLIC PANEL [CHEM] Stat Lab 03/22/19 02:[address] Stat Lab 03/22/19 03:00 Completed LACTATE, PLASMA [CHEM] Lab 03/22/19 05:30 Uncollected LACTATE, PLASMA [CHEM] Lab 03/22/19 08:30 Uncollected LACTATE, PLASMA [CHEM] Q3H Lab 03/22/19 02:28 Completed MAGNESIUM [CHEM] Stat Lab 03/22/19 02:28 Completed PRO B-NATRIURETIC PEPTIDE Stat Lab 03/22/19 02:28 Completed PROTIME WITH INR [COAG] Stat Lab 03/22/19 02:28 Completed PTT [COAG] Stat Lab 03/22/19 02:28 Completed TROPONIN T HIGH SENSITIVITY Stat Lab 03/22/19 02:28 Completed URINALYSIS W/POSS RFLX CULT [URINALYSIS] Stat Lab 03/22/19 03:00 Completed 0.9% Sodium Chloride Inj [Ns] 1,000 ml Med 03/22/19 02:25 Discontinued IV 999 mls/hr Albuterol 2.5MG/Ipratrop 0.5MG [Duoneb (A & A)] Med 03/22/19 02:25 Discontinued 3 ml INH NOW ONE Azithromycin 500 mg/Ns [Zithromax 500 mg/Ns] Med 03/22/19 03:58 Ordered 500 mg in 250 ml IV NOW Furosemide [Lasix] Med 03/22/19 02:25 Discontinued 80 mg IV NOW ONE Methylprednisolone Sod Succ [Solu-Medrol] Med 03/22/19 02:25 Discontinued 125 mg IV NOW ONE Rocephin 1 gm/Ns IV Now Med 03/22/19 03:58 Ordered CefTRIAXONE [Rocephin] 1 gm 0.9% Sodium Chloride Inj [Ns] 50 ml IV NOW Aerosol Treatments Routine Oth 03/22/19 02:26 Completed Aerosol Treatments Stat Oth 03/22/19 02:26 Completed Oxygen Device Stat Oth 03/22/19 02:23 Active EKG [EKG] Stat Ther 03/22/19 02:24 Ordered Result Diagrams: 03/22/19 02:28 03/22/19 02:28 - REASSESSMENT Reassessment #1 Time Reassessed: 04:02 Status: improving (Repeat blood gas on 4L by NC improved, given 3 duoneb, 1L of NS, rocephin/zithromax, and IV lasix. Patient is septic, but not hypotensive, nor elevated lactate, so no end-organ damage.) - EKG 1 Time of EKG reading by physician:: 03:25 EKG Read and Signed by:: Bo Alarcon EKG Interpretation (*Must complete 3 of following elements*): Abnormal Rate: 105 Rhythm: Sinus tach Turner: normal QRS: Q Waves present, other (OAWMI) GA Interval: normal ST Wave: non-specific ST changes Prior EKG Comparison: unchanged from prior (11/17/18) - XRAY 1 XRAY Study: Chest Impression: Abnormal (likely right ML infiltrate, borderline CM) - CONSULTS/PCP/HOSPITALIST Notification #1 *Consult/PCP/Hospitalist*: Nnamdi paged at [phone] Time Discussed: 04:09 Consult Disposition: Admit Departure - Departure Date of Disposition Decision: 03/22/19 Time of Disposition Decision: 04:05 DIAGNOSIS: Acute respiratory distress, COPD with exacerbation, Hypoxemia, Type 2 diabetes mellitus with hyperglycemia, without long-term current use of insulin Disposition: ADMITTED INPATIENT 09 Certified Medical Emergency: Emergent Condition: Fair Referrals and Follow-Ups: Dwight Escoto MD [Primary Care Provider] - - Critical Care Note This patient required my direct & personal management of CC.: Yes Total Time (mins): 40 Critical Care Statement: This patient required my direct personal management to treat or rule out processes, the absence of which, could potentiallly result in sudden, clinically significant life or limb threatening deterioration. Attestation - Physician/ BRENNA Attestation Patient care was provided by Advanced Practice Provider:: No The physician spent face to face time with patient:: Yes Advanced Practice Provider documentation review:: Supervising physician onsite and consulted in the evaluation and care of this patient. The physician did have a face to face encounter with the patient.
[2019-03-22 03:31] LABS: INR 0.92; PROTIME 12.8 Seconds (11.0-16.0)
[2019-03-22 03:32] LABS: PTT 28.1 Seconds (22.3-41.8)
[2019-03-22 03:33] LABS: ALBUMIN 4.3 g/dL (3.5-5.0); ALKALINE PHOSPHATASE 73 U/L (32-104); CHLORIDE 96 mmol/L (98-107); GPT 19 U/L (10-36); POTASSIUM 3.7 mmol/L (3.5-5.1); SODIUM 138 mmol/L (136-145)
[2019-03-22 03:51] LABS: BE 5.4 mmoll (-3.0-3.0); BLOOD TYPE ARTERIAL; HCO3-(ACT) 29.1 mmoll (20.0-26.0); METHB 1.1 % (0.0-1.5); O2(CT) 19.2 mL/dL (15.0-23.0); PO2(98.6) 91 mmHg (60-100); SAMPLE BLOOD; SAO2 98.2 % (95.0-100.0); THB 14.3 g/dL (11.5-17.4)
[2019-03-22 03:52] LABS: BUN 7 mg/dL (8-22); CALCIUM 9.5 mg/dL (8.8-10.2); CK PROFILE 173 U/L (24-173); CREATININE 0.5 mg/dL (0.5-0.9); ESTIMATED GFR > 60; GLUCOSE 301 mg/dL (70-104); GOT 14 U/L (10-30); MAGNESIUM 2.1 mg/dL (1.5-2.7); TCO2 25 mmol/L (25-35); TOTAL PROTEIN 7.3 g/dL (6.3-8.3)
[2019-03-22 03:53] LABS: INFLUENZA A NEGATIVE (NEGATIVE); INFLUENZA B NEGATIVE (NEGATIVE)
[2019-03-22 03:54] LABS: ALLEN TEST NO; MODALITY CANNULA; PCO2(98.6) 51 mmHg (35-45)
[2019-03-22 03:55] LABS: AGAP 17; COSMO 285
[2019-03-22] MEDS ORDERED: ROCEPHIN 1 GM in NS 50 ML IV ONE (03:58)
[2019-03-22] MEDS ORDERED: ZITHROMAX 500 MG/NS 500 MG/250 ML IVPB IV ONE (03:58)
[2019-03-22] MEDS ORDERED: HUMULIN R IV ONE (04:08)
--- NOTE | 2019-03-22 04:11 | EKG Report ---
Test Performed on : 03/22/2019 03:08:14 AM Test Reason : SOB Blood Pressure : / mmHG Vent. Rate : 105 BPM Atrial Rate : 105 BPM P-R Int : 188 ms QRS Dur : 072 ms QT Int : 338 ms P-R-T Axes : 061 037 052 degrees QTc Int : 446 ms Sinus tachycardia. Anterior infarct (cited on or before 27-JAN-2018) Abnormal ECG When compared with ECG of 17-NOV-2018 22:45, No significant change was found Unconfirmed Result
[2019-03-22] MEDS ORDERED: TYLENOL PO PRN (04:14)
[2019-03-22] MEDS ORDERED: ZOFRAN ODT PO PRN (04:14)
[2019-03-22] MEDS ORDERED: D50W SYRINGE IV ONE (04:14)
[2019-03-22] MEDS ORDERED: D50W SYRINGE IV PRN (04:25)
[2019-03-22] MEDS: DUONEB (A & A) INH SCH ×5 (07:45→23:14)
--- NOTE | 2019-03-22 08:58 | Diag Imaging Result Doc PS360 ---
EXAM: CHEST-1 VIEW HISTORY: sob TECHNIQUE: Single view. COMPARISON: 11/18/2018 FINDINGS: Limited portable study due to body habitus. The cardiomediastinal silhouette is within normal limits. The pulmonary vasculature is not congested. No infiltrate, effusion, or pneumothorax is appreciated. IMPRESSION: No acute cardiopulmonary abnormality is identified. Electronically signed by Malou Kline 03/22/2019 8:55 AM
[2019-03-22] MEDS: HUMALOG (PARKWAY) SUBQ SCH ×4 (11:34→22:02)
[2019-03-22] MEDS: SOLU-MEDROL IV SCH ×2 (11:34→18:40)
[2019-03-22] MEDS: ROBITUSSIN PO PRN ×2 (11:35→18:41)
[2019-03-22] MEDS ORDERED: VENTOLIN HFA INH PRN (16:36)
--- NOTE | 2019-03-22 18:25 | HISTORY AND PHYSICAL ---
PRIMARY CARE PHYSICIAN: Dr. Escoto. CHIEF COMPLAINT: Shortness of breath that has progressively worsened over the last 2 days. HISTORY OF PRESENTING ILLNESS: This is a 53-year-old female who presents to [facility] ER with complaints of shortness of breath that has progressively worsened over the last 2 days. States that she has had a weight gain of about 16 pounds over the last 2 weeks. Despite her supplemental oxygen and breathing treatments at home, she had not had any relief over the last 2 days. On arrival, she was saturating 96% on 5 L via nasal cannula. ABG on arrival showed a pH of 7.35, pCO2 60, PO2 124, bicarb 29.2, and this was on 6 L of cool aerosol. Blood sugar on arrival was 301. Influenza A and B were both negative. Chest x-ray showed no acute cardiopulmonary abnormality identified, but she is being admitted for an acute COPD exacerbation for further evaluation and treatment. PAST MEDICAL HISTORY: COPD with home O2 use, asthma, CHF, CVA in 2013, hypertension, and GERD. PAST SURGICAL HISTORY: Cholecystectomy, , bilateral tubal ligation, and a breast reduction. FAMILY HISTORY: Mother is alive and has a history of hypertension, diverticulitis, chronic kidney disease, on dialysis, CHF, COPD, and diabetes type 2. Father is alive and has a history of hypertension, cardiomegaly, enlarged kidneys, gallstones, CHF, COPD, and diabetes type 2. Sisters are alive with a history of diabetes type 2 and CHF. SOCIAL HISTORY: Currently lives alone. She is a former smoker. Smoked a pack and a half daily for the past 37 years but reports that she quit smoking 2 years ago. Denies any alcohol or illicit drug use. ALLERGIES: Lisinopril, procaine, penicillins, vaccine, and latex. HOME MEDICATIONS: She takes DuoNeb 4 times daily, Ventolin 2 puff inhalation p.r.n., amlodipine 10 mg p.o. daily, Lasix 40 mg p.o. daily, hydralazine 50 mg p.o. t.i.d., [place] 10 one p.o. q.6 hours p.r.n., losartan 100 mg p.o. daily, metformin 850 mg p.o. b.i.d. LABORATORY DATA: Showed a white blood cell count of 8.72, hemoglobin 13, hematocrit 39.7, platelets 244,000. PT and INR of 12.8 and 0.92. ABG on arrival showed a pH of 7.35, pCO2 of 60, PO2 124, bicarb 29.2, and this was on 6 L of cool aerosol. Repeat about an hour and a half later showed a pH of 7.40, pCO2 51, PO2 91, bicarb 29.1, and this was on 4 L via nasal cannula. Sodium 138, potassium 3.7, chloride 96, CO2 25, BUN of 7, creatinine 0.5, glucose 301, magnesium 2.1. Plasma lactate on arrival was 1.9. Approximately 3.5 hours later plasma lactate went up to 3.3 and then this morning came down to 3. Urinalysis was negative. Influenza A and B were both negative. Chest x-ray showed no acute cardiopulmonary abnormality identified. EKG showed sinus tachycardia at 105. REVIEW OF SYSTEMS: She denied any fever, chills, blurred vision. She did have some dizziness, lightheadedness, body aches, cough, shortness of breath, weight gain. Denied any abdominal pain, constipation, diarrhea, burning or hurting with urination. PHYSICAL EXAMINATION: VITAL SIGNS: On arrival she had a temperature of 98.7 degrees, pulse 108, respirations 32, blood pressure 163/76, saturating 96% on 5 L via nasal cannula, currently saturating 97% on 3 L via nasal cannula. GENERAL: This is a 53-year-old female who is lying in the bed. Answers questions appropriately. HENT: Normocephalic, atraumatic. Normal ENT inspection. Oropharynx and nares are clear. EYES: Pupils are equal, round, reactive to light and accommodation. Extraocular movements are intact. NECK: Normal inspection. Normal range of motion. LUNGS: With wheezing to her upper lobes bilaterally. Diminished to her lower lobes. Equal lung expansion and chest wall movement noted. HEART: Regular rate and rhythm. No murmurs, rubs, or gallops. She does note 2+ pitting edema to bilateral lower extremities. ABDOMEN: Soft, nontender, nondistended. Bowel sounds are present x4 quadrants. MUSCULOSKELETAL: She had 5/5 strength x4 extremities. NEUROLOGICAL: The cranial nerves 2-12 appear grossly intact. ASSESSMENT: 1. Acute chronic obstructive pulmonary disease exacerbation. 2. Diabetes type 2 with hyperglycemia. 3. Hypertension. 4. Dyspnea. PLAN: She was admitted to the medical unit. Placed on telemetry, diabetic diet, pattern blood sugars with sliding scale insulin, DuoNeb q.4 hours, Robitussin 10 mg q.4 hours p.r.n., Solu- Medrol 80 mg IV q.8 and will wean as she improves, Rocephin 1 gram IV q.24, azithromycin 500 IV q.24. Continue home medications as previously identified and recheck a CBC, BMP in the a.m. Further orders after seen by attending. Dictated by TIMOTHY Miller for Fletcher Coto MD cc: TIMOTHY Miller MD Moses Awoniyi, MD MTDD
[2019-03-22] MEDS: GLUCOPHAGE PO SCH (18:39)
[2019-03-22] MEDS: NORCO-10 PO PRN (18:41)
--- NOTE | 2019-03-22 20:10 | HISTORY AND PHYSICAL ---
The patient presented to the hospital with increased cough, congestion, and shortness of breath. Subsequently diagnosed with pneumonia. We are going to admit to the hospital, place on antibiotics, breathing treatments, and will follow. cc: Fletcher Coto MD
[2019-03-22] MEDS: APRESOLINE PO SCH (20:29)
[2019-03-23] MEDS: SOLU-MEDROL IV SCH ×3 (02:16→18:50)
[2019-03-23] MEDS: ROCEPHIN 1 GM in NS 50 ML IV SCH (03:06)
[2019-03-23] MEDS: DUONEB (A & A) INH SCH ×6 (03:22→23:08)
[2019-03-23] MEDS: ZITHROMAX 500 MG/NS 500 MG/250 ML IVPB IV SCH (06:25)
[2019-03-23] MEDS: HUMALOG (PARKWAY) SUBQ SCH ×4 (06:31→20:28)
[2019-03-23] MEDS: NORCO-10 PO PRN ×2 (06:35→20:46)
[2019-03-23 06:54] LABS: HEMATOCRIT 38.3 % (37.0-47.0); HEMOGLOBIN 12.3 g/dL (12.0-16.0); IMM GRAN# 0.03 X1000 (0.0-0.04); IMM GRAN% 0.3 % (0.0-0.5); LYMPH# 1.33 X1000 (1.2-3.4); LYMPH% 12.2 % (20.5-51.1); MCH 27.6 PG (27-31); MCHC 32.1 g/dL (33-37); MCV 86.1 FL (81-99); MONO# 0.34 X1000 (0.11-0.59); MONO% 3.1 % (1.7-9.3); MPV 12.4 FL (7.4-10.4); NEUT% 84.4 % (42.2-75.2); PLT 254 X1000 (130-400); RBC 4.45 XMIL (4.2-5.4); RDW 12.4 % (11.5-14.5)
[2019-03-23] MEDS: LASIX PO SCH (08:36)
[2019-03-23] MEDS: APRESOLINE PO SCH ×3 (08:36→20:29)
[2019-03-23] MEDS: COZAAR PO SCH (08:36)
[2019-03-23] MEDS: GLUCOPHAGE PO SCH ×2 (08:36→17:15)
[2019-03-23] MEDS: NORVASC PO SCH (08:36)
[2019-03-23 09:03] LABS: AGAP 15; BUN 12 mg/dL (8-22); CALCIUM 9.7 mg/dL (8.8-10.2); CHLORIDE 99 mmol/L (98-107); COSMO 293; CREATININE 0.5 mg/dL (0.5-0.9); ESTIMATED GFR > 60; POTASSIUM 4.1 mmol/L (3.5-5.1); SODIUM 138 mmol/L (136-145); TCO2 25 mmol/L (25-35)
[2019-03-23 09:06] LABS: GLUCOSE 421 mg/dL (70-104)
[2019-03-23 09:15] LABS: HEMOGLOBIN A1C 10.9 % (4.8-6.0)
--- NOTE | 2019-03-23 18:58 | PROGRESS NOTE ---
DATE: 03/23/2019 SUBJECTIVE: Patient notes that she is feeling a little bit better. She is having less cough and congestion, less shortness of breath. PHYSICAL EXAMINATION: Vital Signs: Reviewed. Temperature 97.6, pulse 99, respiratory rate 18, BP 181/82, saturation 91% on 2 L. The patient is an obese female who is pleasant, sitting up on the bed, ordering her breakfast. HEENT: Normocephalic. Neck: Supple. Cardiovascular: Regular rate. Chest: Improved air movement, although distant due to body habitus. Extremities: Moves all extremities. Neurologic: No changes. Abdomen: Soft, obese, nontender. ASSESSMENT/PLAN: 1. Diabetes with an elevated A1c at home of 10.9. Her blood sugars are currently elevated. She is on steroids due to her breathing. We are going to continue to rapidly decrease the dose and follow. 2. Chronic obstructive pulmonary disease with exacerbation. Continue breathing treatments, steroids, oxygen, and antibiotics. Hopefully home over the next 2 or 3 days. Depends on her blood sugars and her breathing. cc: Fletcher Coto MD
[2019-03-23] MEDS: ROBITUSSIN PO PRN (20:47)
[2019-03-24] MEDS: DUONEB (A & A) INH SCH ×5 (03:14→19:51)
[2019-03-24] MEDS: SOLU-MEDROL IV SCH ×2 (03:58→16:50)
[2019-03-24] MEDS: ROCEPHIN 1 GM in NS 50 ML IV SCH (03:58)
[2019-03-24] MEDS: ZITHROMAX 500 MG/NS 500 MG/250 ML IVPB IV SCH ×2 (04:27→06:14)
[2019-03-24] MEDS: HUMALOG (PARKWAY) SUBQ SCH ×4 (06:47→21:07)
[2019-03-24] MEDS: NORVASC PO SCH (09:53)
[2019-03-24] MEDS: COZAAR PO SCH (09:53)
[2019-03-24] MEDS: LASIX PO SCH (09:53)
[2019-03-24] MEDS: GLUCOPHAGE PO SCH ×2 (09:53→17:17)
[2019-03-24] MEDS: APRESOLINE PO SCH ×3 (09:53→21:06)
--- NOTE | 2019-03-24 20:03 | PROGRESS NOTE ---
DATE: 03/24/2019 SUBJECTIVE: The patient notes that she is feeling okay. Still having some shortness of breath. Denies any true fevers or chills currently. PHYSICAL EXAMINATION: Vital Signs: Reviewed. She is awake, alert. Temperature 97.8 degrees, pulse 92, respiratory 22, BP 127/55. General: The patient is an obese female who currently is in minimal respiratory distress. She does appear to be improving. HEENT: Normocephalic. Neck: Supple. Cardiovascular: Regular rate. Chest: Decreased breath, but actually improved. Positive wheezing, also improved. Extremities: Moves all extremities. No edema. Neurologic: No changes. ASSESSMENT: 1. Acute chronic obstructive pulmonary disease exacerbation. 2. Diabetes with hyperglycemia with poor control with an A1c at 10.8. 3. Hypertension. 4. Dyslipidemia. PLAN: We are going to continue the patient in the hospital. We are going to decrease her Solu- Medrol. Continue sliding scale insulin. Continue to follow. Further orders as needed. Hopefully, she can discharged home over the next day or 2. Discussed with patient the importance of controlling her blood sugar at home as well as her breathing. cc: Fletcher Coto MD
[2019-03-24] MEDS: NORCO-10 PO PRN (21:25)
[2019-03-24] MEDS: ROBITUSSIN PO PRN (21:26)
[2019-03-25] MEDS: DUONEB (A & A) INH SCH ×7 (00:05→22:41)
[2019-03-25] MEDS: ROCEPHIN 1 GM in NS 50 ML IV SCH (05:01)
[2019-03-25] MEDS: SOLU-MEDROL IV SCH (05:01)
[2019-03-25] MEDS: ZITHROMAX 500 MG/NS 500 MG/250 ML IVPB IV SCH (06:10)
[2019-03-25] MEDS: HUMALOG (PARKWAY) SUBQ SCH ×4 (06:11→21:53)
[2019-03-25] MEDS: LASIX PO SCH (08:02)
[2019-03-25] MEDS: APRESOLINE PO SCH ×3 (08:02→21:53)
[2019-03-25] MEDS: GLUCOPHAGE PO SCH ×2 (08:02→16:22)
[2019-03-25] MEDS: NORVASC PO SCH (08:02)
[2019-03-25] MEDS: COZAAR PO SCH (08:03)
--- NOTE | 2019-03-25 19:29 | PROGRESS NOTE ---
DATE: 03/25/2019 SUBJECTIVE: Patient notes that she is feeling a lot better. Much less cough and congestion, much less wheezing. Denies any fevers or chills. OBJECTIVE: Temperature 97.9 degrees, pulse 84, respiratory rate 18, BP 137/82. General: The patient is pleasant. She is in no distress. HEENT: Normocephalic. neck: Supple. Cardiovascular: Regular rate. Chest: Decreased but equal. Improved air movement. Decreased wheezing. Abdomen: Soft, obese, nondistended. Extremities: Moves all extremities. ASSESSMENT: 1. Acute chronic obstructive pulmonary disease with exacerbation. 2. Diabetes with hyperglycemia. 3. Hypertension. 4. Dyspnea on exertion. PLAN: We are going to continue patient in the hospital as we are weaning down her Solu-Medrol, because she certainly has had some markedly elevated blood sugars. We will continue sliding scale insulin. Change her Solu-Medrol to once daily. If she tolerates this, hopefully she can discharge home tomorrow without any further steroids. cc: Fletcher Coto MD
[2019-03-26] MEDS: DUONEB (A & A) INH SCH ×3 (04:30→13:06)
[2019-03-26] MEDS ORDERED: SOLU-MEDROL IV SCH (05:00)
[2019-03-26] MEDS: ROCEPHIN 1 GM in NS 50 ML IV SCH (05:01)
[2019-03-26] MEDS: ZITHROMAX 500 MG/NS 500 MG/250 ML IVPB IV SCH ×2 (05:32→06:52)
[2019-03-26 05:58] VITALS: BP 133/62
[2019-03-26] MEDS: HUMALOG (PARKWAY) SUBQ SCH ×2 (06:04→11:46)
[2019-03-26] MEDS: APRESOLINE PO SCH (08:30)
[2019-03-26] MEDS: GLUCOPHAGE PO SCH (08:30)
[2019-03-26] MEDS: COZAAR PO SCH (08:31)
[2019-03-26] MEDS: NORVASC PO SCH (08:31)
[2019-03-26] MEDS: LASIX PO SCH (08:31)
[2019-03-26] MEDS ORDERED: JANUVIA PO SCH (09:00)
[2019-03-26] MEDS ORDERED: FLU VACCINE IM ONE (11:51)
[2019-03-26] MEDS ORDERED: PNEUMOVAX 23 IM ONE (11:52)
[2019-03-26] MEDS: NORCO-10 PO PRN (12:00)
--- NOTE | 2019-03-26 21:00 | DISCHARGE SUMMARY ---
ADMISSION DATE: 03/22/2019 DISCHARGE DATE: 03/26/2019 PRIMARY CARE PHYSICIAN: Dr. Escoto. ADMISSION DIAGNOSES: 1. An acute chronic obstructive pulmonary disease exacerbation. 2. Diabetes type 2 with hyperglycemia. 3. Hypertension. 4. Dyspnea. DISCHARGE DIAGNOSES: 1. Acute chronic obstructive pulmonary disease exacerbation. 2. Diabetes with hyperglycemia. 3. Hypertension. 4. Dyspnea on exertion, improved. SUMMARY OF FINDINGS: This is a 53-year-old female who presented to the ER with complaints of shortness of breath that worsened over 2 days prior to arriving. States she had gained about 16 pounds over 2 weeks despite her supplemental oxygen and breathing treatments at home. She had not had any relief. She was saturating 96% on 5 L. Chest x-ray showed no acute cardiopulmonary abnormality so was admitted for a COPD exacerbation, placed on DuoNeb, Solu-Medrol to wean, IV antibiotics. She has improved and is now feeling much better and it is felt that she can safely be discharged home. DISCHARGE MEDICATIONS: Include Ventolin 2 puff inhalation p.r.n., amlodipine 10 mg p.o. daily, Lasix 40 mg p.o. daily, hydralazine 50 mg p.o. t.i.d., [place] 10 one p.o. q. 6 hours p.r.n., losartan 100 mg p.o. daily, metformin 850 mg p.o. b.i.d., DuoNeb 4 times daily, azithromycin 250 mg p.o. daily #4 with no refills, cefdinir 300 mg p.o. b.i.d. #10 with no refills, and Januvia 100 mg p.o. daily. FOLLOWUP: She will need to follow up with her primary care physician in 1 to 2 weeks and call his office for an appointment. Dictated by TIMOTHY Miller for Fletcher Coto MD cc: TIMOTHY Miller MD Moses Awoniyi, MD
--- NOTE | 2019-03-27 04:08 | DISCHARGE SUMMARY ---
ADMISSION DATE: 03/22/2019 DISCHARGE DATE: 03/26/2019 ADDENDUM: Patient seen and examined by myself. Full note dictated and discussed with nurse practitioner. On discharge, patient is awake, alert. She is feeling better. She is having no distress. Her breathing is back to her usual self and therefore she will be discharged home. Please see full note. cc: Fletcher Coto MD
== END 2019-03-26 13:30 | disposition home or self-care (01) | DRG 191 ==
LOC: P.ED 02:22 → P.MEDSURG 05:12
PROVIDERS: ATTEND Family Medicine